=== PATIENT | female | born 1950 | race Caucasian/White ===

== ENCOUNTER → 2016-09-21 | Outpatient (CLI) | payer MEDICARE, OTHER ==
[~2016-09-21] MED LIST: DENOSUMAB 60 MG/ML 1 ML SYRINGE SQ ONE; PATIENTS OWN MED ONE
[2016-09-21 14:24] VITALS: BP 170/80; PULSE 90; RESP 16; TEMP 98.3
== END ==
LOC: PROCWHC3 14:00
PROVIDERS: ATTEND Internal Medicine
DX: M81.0 Age-related osteoporosis without current pathological fracture (principal)
CPT/HCPCS: 96372

== ENCOUNTER 2016-11-12 11:39 | Emergency (ER) | payer MEDICARE, OTHER ==
[2016-11-12 11:50] VITALS: BP 159/84; PULSE 91; RESP 18; TEMP 98
[2016-11-12] MEDS ORDERED: HYDROmorphone 1 MG/ML 1 ML SYRINGE IVP STA (12:48)
[2016-11-12] MEDS ORDERED: ONDANSETRON 4 MG/2 ML VIAL IM STA (12:49)
--- NOTE | 2016-11-12 12:55 | ED ---
Extremity Problem HPI - General Chief complaint: Extremity Problem,Nontraumatic Stated complaint: poss Fx rt hip Source: patient Mode of arrival: wheelchair Limitations: no limitations - History of Present Illness Initial comments: Patient is a 65-year-old female who presents for evaluation for right hip pain 2 weeks which is progressively worsening. Past medical history as below. Patient is a history of a right hip replacement at [facility]. Her orthopedic surgeon is also out of that hospital. 2 weeks ago she stated that she started getting severe pain to the right hip. She still able to ambulate with her walker and cane. Denies any falls or trauma to the right hip. It is worse in the morning and improves without the day. States that she can't get out of bed like she typically can. She had a poorly a shot 2 months ago and states that she is having a host of side effects from it. She denies fevers, cough, chest pain, nausea, vomiting, diarrhea, pain or burning with urination. - Related Data Home Medications Medication Instructions Recorded Confirmed ALPRAZolam [Xanax] 0.5 mg PO TID PRN 01/06/15 11/12/16 Atorvastatin Calcium [Lipitor] 20 mg PO HS 01/29/16 11/12/16 Ergocalciferol [Vitamin D2 50,000 unit PO SA 01/29/16 11/12/16 (DRISDOL)] Polyethylene Glycol 3350 [Miralax] 17 gm PO DAILY PRN 01/29/16 11/12/16 traZODone HCL [Desyrel] 100 mg PO HS 01/29/16 11/12/16 Morphine Sulfate [Morphine Sulfate 15 mg PO BID 09/21/16 11/12/16 ER] Acetaminophen Tab [Tylenol Tab] 1,000 - 1,500 mg PO Q6HR PRN 11/12/16 11/12/16 Aspirin 81 mg PO DAILY 11/12/16 11/12/16 Ibuprofen [Motrin] 600 mg PO Q8HR PRN 11/12/16 11/12/16 Previous Rx's Medication Instructions Recorded Lisinopril [Zestril] 20 mg PO DAILY #30 tab 02/05/16 oxyCODONE HCL/ACETAMINOPHEN 1 tab PO Q6HR PRN #120 tablet 02/05/16 [Percocet 10-325 mg] Allergies Allergy/AdvReac Type Severity Reaction Status Date / Time Sulfa (Sulfonamide Allergy Unknown Verified 11/12/16 12:36 Antibiotics) hydrocodone AdvReac Nausea Verified 11/12/16 12:40 hydromorphone [From Dilaudid] AdvReac Nausea Verified 11/12/16 12:40 Review of Systems ROS Statement: Those systems with pertinent positive or pertinent negative responses have been documented in the HPI. ROS Other: All systems not noted in ROS Statement are negative. Past Medical History Past Medical History: Eye Disorder, GERD/Reflux, Hyperlipidemia, Hypertension, Osteoarthritis (OA) Additional Past Medical History / Comment(s): DIVERTICULOSIS, HIATAL HERNIA, BOWEL PERFORATION AFTER COLONOSCOPY, KIDNEY STONES,GLAUCOMA ZAHIRA EYES, History of Any Multi-Drug Resistant Organisms: None Reported Past Surgical History: Bowel Resection, Breast Surgery, Hysterectomy, Joint Replacement, Orthopedic Surgery Additional Past Surgical History / Comment(s): colostomy/ later reversal, arthrscopy rt knee, exp lap with lysis of adhesions, uretal stents with removal of stents, colovaginal fistula repair, right hip replaced Past Anesthesia/Blood Transfusion Reactions: Postoperative Nausea & Vomiting ( PONV) Past Psychological History: Anxiety, Depression Smoking Status: Current every day smoker Past Alcohol Use History: None Reported Past Drug Use History: None Reported - Past Family History Brother(s) Family Medical History: Cancer Additional Family Medical History / Comment(s): colon General Exam Limitations: no limitations General appearance: alert, in no apparent distress, other (Resting comfortably in the stretcher. Sitting upright reading a magazine.) Head exam: Present: atraumatic, normocephalic, normal inspection Eye exam: Present: normal appearance, PERRL, EOMI. Absent: scleral icterus, conjunctival injection, periorbital swelling ENT exam: Present: normal exam, mucous membranes moist Neck exam: Present: normal inspection. Absent: tenderness, meningismus, lymphadenopathy Respiratory exam: Present: normal lung sounds bilaterally. Absent: respiratory distress, wheezes, rales, rhonchi, stridor Cardiovascular Exam: Present: regular rate, normal rhythm, normal heart sounds. Absent: systolic murmur, diastolic murmur, rubs, gallop, clicks GI/Abdominal exam: Present: soft, normal bowel sounds. Absent: distended, tenderness, guarding, rebound, rigid Extremities exam: Present: normal inspection, full ROM, tenderness (Pain with palpation of the right lateral hip. No pain with femur role. Mild tenderness with palpation of the right knee.), normal capillary refill. Absent: pedal edema, joint swelling, calf tenderness Back exam: Present: normal inspection Neurological exam: Present: alert, oriented X3, CN II-XII intact Psychiatric exam: Present: normal affect, normal mood Skin exam: Present: warm, dry, intact, normal color. Absent: rash Course Vital Signs 11/12/16 11:44 Temperature 98 F Pulse Rate 91 Respiratory 18 Rate Blood Pressure 159/84 O2 Sat by Pulse 97 Oximetry Medical Decision Making - Medical Decision Making - Patient presents for evaluation for worsening right hip pain over the last 2 weeks. No trauma or fall. She has a constellation of other symptoms. Believes that is related to her prolia shot. Will order basic labs with a troponin, EKG, troponin, 0.5 mg IV Dilaudid as she is not opiate shade. 1352: Reviewed EKG. Normal sinus rhythm at 73. OR 154. QRS 82. QTc 429. No ST changes. Similar to EKG on 01/27/2016. Awaiting laboratory studies and imaging. 1500: Reviewed the patient's laboratory studies and imaging. No acute abnormalities with her blood work. Plain films of her right hip and right knee revealed no acute fracture dislocation. Patient very upset. Was able to scoot out of bed and landed on both feet and walked to her bag and started to get dressed. I will provide an orthopedic surgeon to follow-up with. I encouraged her to follow-up with her own orthopedic surgeon. The patient stated that she will just follow-up with her own primary care physician. Discussed signs and symptoms on when to return to the emergency department for further evaluation. - Lab Data Result diagrams: 11/12/16 13:30 11/12/16 13:30 Lab Results 11/12/16 11/12/16 11/12/16 Range/Units 13:30 13:30 13:30 WBC 6.0 (3.8-10.6) k/uL RBC 5.03 (3.80-5.40) m/uL Hgb 15.7 (11.4-16.0) gm/dL Hct 48.3 H (34.0-46.0) % MCV 96.1 (80.0-100.0) fL MCH 31.2 (25.0-35.0) pg MCHC 32.4 (31.0-37.0) g/dL RDW 13.8 (11.5-15.5) % Plt Count 214 (150-450) k/uL Neutrophils % 59 % Lymphocytes % 30 % Monocytes % 7 % Eosinophils % 2 % Basophils % 0 % Neutrophils # 3.5 (1.3-7.7) k/uL Lymphocytes # 1.8 (1.0-4.8) k/uL Monocytes # 0.4 (0-1.0) k/uL Eosinophils # 0.1 (0-0.7) k/uL Basophils # 0.0 (0-0.2) k/uL Sodium 144 (137-145) mmol/L Potassium 4.4 (3.5-5.1) mmol/L Chloride 112 H (98-107) mmol/L Carbon Dioxide 22 (22-30) mmol/L Anion Gap 10 mmol/L BUN 14 (7-17) mg/dL Creatinine 0.50 L (0.52-1.04) mg/dL Est GFR (MDRD) Af Amer >60 (>60 ml/min/1.73 sqM) Est GFR (MDRD) Non-Af >60 (>60 ml/min/1.73 sqM) Glucose 99 (74-99) mg/dL Calcium 8.8 (8.4-10.2) mg/dL Magnesium 2.2 (1.6-2.3) mg/dL Troponin I <0.012 (0.000-0.034) ng/mL Urine Color Urine Appearance (Clear) Urine pH (5.0-8.0) Ur Specific [place] (1.001-1.035) Urine Protein (Negative) Urine Glucose (UA) (Negative) Urine Ketones (Negative) Urine Blood (Negative) Urine Nitrite (Negative) Urine Bilirubin (Negative) Urine Urobilinogen (<2.0) mg/dL Ur Leukocyte Esterase (Negative) 11/12/16 Range/Units 13:30 WBC (3.8-10.6) k/uL RBC (3.80-5.40) m/uL Hgb (11.4-16.0) gm/dL Hct (34.0-46.0) % MCV (80.0-100.0) fL MCH (25.0-35.0) pg MCHC (31.0-37.0) g/dL RDW (11.5-15.5) % Plt Count (150-450) k/uL Neutrophils % % Lymphocytes % % Monocytes % % Eosinophils % % Basophils % % Neutrophils # (1.3-7.7) k/uL Lymphocytes # (1.0-4.8) k/uL Monocytes # (0-1.0) k/uL Eosinophils # (0-0.7) k/uL Basophils # (0-0.2) k/uL Sodium (137-145) mmol/L Potassium (3.5-5.1) mmol/L Chloride (98-107) mmol/L Carbon Dioxide (22-30) mmol/L Anion Gap mmol/L BUN (7-17) mg/dL Creatinine (0.52-1.04) mg/dL Est GFR (MDRD) Af Amer (>60 ml/min/1.73 sqM) Est GFR (MDRD) Non-Af (>60 ml/min/1.73 sqM) Glucose (74-99) mg/dL Calcium (8.4-10.2) mg/dL Magnesium (1.6-2.3) mg/dL Troponin I (0.000-0.034) ng/mL Urine Color Light Yellow Urine Appearance Clear (Clear) Urine pH 5.0 (5.0-8.0) Ur Specific [place] 1.010 (1.001-1.035) Urine Protein Negative (Negative) Urine Glucose (UA) Negative (Negative) Urine Ketones Negative (Negative) Urine Blood Negative (Negative) Urine Nitrite Negative (Negative) Urine Bilirubin Negative (Negative) Urine Urobilinogen <2.0 (<2.0) mg/dL Ur Leukocyte Esterase Negative (Negative) Disposition Clinical Impression: Hip pain Disposition: HOME SELF-CARE Condition: Fair Instructions: Hip Pain (ED) Referrals: Pravin Edmonds MD [Primary Care Provider] - 1-2 days Simba Means MD [Medical Doctor] - 1-2 days
[2016-11-12] MEDS ORDERED: ONDANSETRON 4 MG/2 ML VIAL IVP STA (13:33)
[2016-11-12 13:47] LABS: Basophils % (A) 0 %; CH 31.8; CHCM 33.2; Eosinophils # (A) 0.1 k/uL (0-0.7); Eosinophils % (A) 2 %; HCT 48.3 % (34.0-46.0); HGB 15.7 gm/dL (11.4-16.0); Luc # (Auto) 0.06; Luc % (Auto) 1; Lymphocytes # (A) 1.8 k/uL (1.0-4.8); Lymphocytes % (A) 30 %; MCH 31.2 pg (25.0-35.0); MCHC 32.4 g/dL (31.0-37.0); MCV 96.1 fL (80.0-100.0); Mean Platelet Volume 6.9; Monocytes # (A) 0.4 k/uL (0-1.0); Monocytes % (A) 7 %; Neutrophils # (A) 3.5 k/uL (1.3-7.7); Neutrophils % (A) 59 %; RBC 5.03 m/uL (3.80-5.40); RDW 13.8 % (11.5-15.5); WBC (Perox) 6.02
[2016-11-12 13:48] LABS: Appearance,Urine Clear (Clear); Bilirubin,Urine Negative (Negative); Glucose,Urine (UA) Negative (Negative); Ketones,Urine Negative (Negative); Leukocyte Esterase,Urine Negative (Negative); Nitrite,Urine Negative (Negative); Protein,Urine Negative (Negative); UA Billing (MACRO vs. MICRO) CHEM; Urobilinogen,Urine <2.0 mg/dL (<2.0)
[2016-11-12 13:56] LABS: Anion Gap 10 mmol/L; Blood Urea Nitrogen 14 mg/dL (7-17); Calcium 8.8 mg/dL (8.4-10.2); Carbon Dioxide 22 mmol/L (22-30); Chloride 112 mmol/L (98-107); Glucose 99 mg/dL (74-99); Magnesium 2.2 mg/dL (1.6-2.3); Non-African American GFR(MDRD) >60 (>60 ml/min/1.73 sqM); Potassium 4.4 mmol/L (3.5-5.1); Sodium 144 mmol/L (137-145)
--- NOTE | 2016-11-12 14:01 | XR ---
EXAMINATION TYPE: XR knee complete RT DATE OF EXAM: 11/12/2016 CLINICAL HISTORY: Right knee pain for 2 weeks. TECHNIQUE: Three views of the right knee are obtained. COMPARISON: Right knee x-ray June 08, 2013.. FINDINGS: There is no acute fracture/dislocation evident in right knee. [place] osseous structures ar e demineralized. Metallic hardware from total right knee arthroplasty is felt satisfactory in positio n. No suspicious surrounding lucency is seen. The overlying soft tissue appears unremarkable. IMPRESSION: There is no acute fracture or dislocation in the right knee.
--- NOTE | 2016-11-12 14:02 | XR ---
EXAMINATION TYPE: XR Hip Complete RT DATE OF EXAM: 11/12/2016 CLINICAL HISTORY: Right hip pain for 2 weeks. TECHNIQUE: AP and frogleg views of the right hip are obtained. COMPARISON: None. FINDINGS: [place] osseous structures are demineralized. There is no acute fracture/dislocation eviden t in the right hip. Metallic hardware from right hip arthroplasty is felt satisfactory in position. No suspicious surrounding lucency is seen. The overlying soft tissue appears unremarkable. IMPRESSION: There is no acute fracture or dislocation in the right hip.
== END 2016-11-12 15:11 | disposition home or self-care (01) ==
LOC: EC 11:39
DX: M25.551 Pain in right hip (principal); M25.561 Pain in right knee; E78.5 Hyperlipidemia, unspecified; I10 Essential (primary) hypertension; F32.9 Major depressive disorder, single episode, unspecified; F41.9 Anxiety disorder, unspecified; M19.90 Unspecified osteoarthritis, unspecified site; F17.200 Nicotine dependence, unspecified, uncomplicated; Z79.82 Long term (current) use of aspirin; Z79.891 Long term (current) use of opiate analgesic; Z79.899 Other long term (current) drug therapy; Z88.2 Allergy status to sulfonamides; Z88.5 Allergy status to narcotic agent; Z96.641 Presence of right artificial hip joint; Z96.651 Presence of right artificial knee joint
CPT/HCPCS: 36415; 93005; 80048; 83735; 84484; 85025; 81003; 73502; 73562; 99284; 96374; 96375; J2405; J1170

== ENCOUNTER 2017-04-02 10:20 | Emergency (ER) | payer MEDICARE, OTHER ==
[2017-04-02 10:34] VITALS: BP 141/77; PULSE 97; RESP 18; TEMP 97.5
[2017-04-02] MEDS ORDERED: diphenhydrAMINE 50 MG/ML 1 ML VIAL IM STA (10:46)
[2017-04-02] MEDS ORDERED: MORPHINE SULFATE 10 MG/ML SYRINGE IM STA (10:46)
--- NOTE | 2017-04-02 10:47 | ED ---
General Adult HPI - General Chief complaint: Allergic Reaction Stated complaint: jaw pain and lesions following shot Time Seen by Provider: 04/02/17 10:30 Source: patient, RN notes reviewed Mode of arrival: wheelchair Limitations: no limitations - History of Present Illness Initial comments: This is a 66-year-old female received a shot of Prolia in the office about a week ago. Patient states she's had a rash which is extremely itchy on her scalp elbow is lower back buttock and inner thighs. Patient states that is raised hives everywhere. Patient states she also has some right-sided jaw pain which is exactly what happened last time she got worried shots. Patient states the jaw pain only hurts if she moves her jaw she sits still there is no pain whatsoever. 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 Patient states she is ALLERGIC to steroids so she cannot take any steroids. Patient states she has not taken any Benadryl for itching at. Patient denies any difficulty breathing patient denies any chest pain palpitations. Patient denies any shortness of breath. Patient denies any recent fever chills or cough per patient denies abdominal pain patient denies nausea vomiting diarrhea. Patient denies headache. - Related Data Home Medications Medication Instructions Recorded Confirmed ALPRAZolam [Xanax] 0.5 mg PO TID PRN 01/06/15 03/24/17 Atorvastatin Calcium [Lipitor] 20 mg PO HS 01/29/16 03/24/17 Ergocalciferol [Vitamin D2 50,000 unit PO SA 01/29/16 03/24/17 (DRISDOL)] Polyethylene Glycol 3350 [Miralax] 17 gm PO DAILY PRN 01/29/16 03/24/17 traZODone HCL [Desyrel] 100 mg PO HS 01/29/16 03/24/17 Morphine Sulfate [Morphine Sulfate 15 mg PO BID 09/21/16 03/24/17 ER] Aspirin 81 mg PO DAILY 11/12/16 03/24/17 Previous Rx's Medication Instructions Recorded Lisinopril [Zestril] 20 mg PO DAILY #30 tab 02/05/16 oxyCODONE HCL/ACETAMINOPHEN 1 tab PO Q6HR PRN #120 tablet 02/05/16 [Percocet 10-325 mg] Allergies Allergy/AdvReac Type Severity Reaction Status Date / Time Sulfa (Sulfonamide Allergy Unknown Verified 04/02/17 10:34 Antibiotics) hydrocodone AdvReac Nausea Verified 04/02/17 10:34 hydromorphone [From Dilaudid] AdvReac Nausea Verified 04/02/17 10:34 steroids Allergy Swelling Uncoded 04/02/17 10:34 Review of Systems ROS Statement: Those systems with pertinent positive or pertinent negative responses have been documented in the HPI. ROS Other: All systems not noted in ROS Statement are negative. Past Medical History Past Medical History: Eye Disorder, GERD/Reflux, Hyperlipidemia, Hypertension, Osteoarthritis (OA) Additional Past Medical History / Comment(s): DIVERTICULOSIS, HIATAL HERNIA, BOWEL PERFORATION AFTER COLONOSCOPY, KIDNEY STONES,GLAUCOMA ZAHIRA EYES, History of Any Multi-Drug Resistant Organisms: None Reported Past Surgical History: Bowel Resection, Breast Surgery, Hysterectomy, Joint Replacement, Orthopedic Surgery Additional Past Surgical History / Comment(s): colostomy/ later reversal, arthrscopy rt knee, exp lap with lysis of adhesions, uretal stents with removal of stents, colovaginal fistula repair, right hip replaced Past Anesthesia/Blood Transfusion Reactions: Postoperative Nausea & Vomiting ( PONV) Past Psychological History: Anxiety, Depression Smoking Status: Current every day smoker Past Alcohol Use History: None Reported Past Drug Use History: None Reported - Past Family History Brother(s) Family Medical History: Cancer Additional Family Medical History / Comment(s): colon General Exam - General Exam Comments Initial Comments: GENERAL: Patient is well-developed and well-nourished. Patient is nontoxic and well- hydrated and is in mild distress. ENT: Neck is soft and supple. No significant lymphadenopathy is noted. Oropharynx is clear. Moist mucous membranes. Neck has full range of motion without eliciting any pain. EYES: The sclera were anicteric and conjunctiva were pink and moist. Extraocular movements were intact and pupils were equal round and reactive to light. Eyelids were unremarkable. PULMONARY: Unlabored respirations. Good breath sounds bilaterally. No audible rales rhonchi or wheezing was noted. CARDIOVASCULAR: There is a regular rate and rhythm without any murmurs gallops or rubs. ABDOMEN: Soft and nontender with normal bowel sounds. No palpable organomegaly was noted. There is no palpable pulsatile mass. SKIN: Has an erythematous scalp bilateral elbows as well as lower back and buttocks and her hives in all those areas. NEUROLOGIC: Patient is alert and oriented x3. Cranial nerves II through XII are grossly intact. Motor and sensory are also intact. Normal speech, volume and content. Symmetrical smile. MUSCULOSKELETAL: Normal extremities with adequate strength and full range of motion. LYMPHATICS: No significant lymphadenopathy is noted PSYCHIATRIC: Normal psychiatric evaluation. Limitations: no limitations Course Vital Signs 04/02/17 10:30 Temperature 97.5 F L Pulse Rate 97 Respiratory 18 Rate Blood Pressure 141/77 O2 Sat by Pulse 98 Oximetry Disposition Clinical Impression: Allergic reaction Disposition: HOME SELF-CARE Condition: Good Instructions: General Allergic Reaction (ED) Additional Instructions: Patient should take Benadryl every 4 hours when necessary for itching. Patient' s returns as any difficulty breathing or shortness of breath. Referrals: Pravin Edmonds MD [Primary Care Provider] - 1-2 days Time of Disposition: 10:50
== END 2017-04-02 11:02 | disposition home or self-care (01) ==
LOC: EC 10:20
DX: T78.40XA Allergy, unspecified, initial encounter (principal); R68.84 Jaw pain; K21.9 Gastro-esophageal reflux disease without esophagitis; E78.5 Hyperlipidemia, unspecified; I10 Essential (primary) hypertension; M19.90 Unspecified osteoarthritis, unspecified site; F32.9 Major depressive disorder, single episode, unspecified; F41.9 Anxiety disorder, unspecified; F17.200 Nicotine dependence, unspecified, uncomplicated; Z79.82 Long term (current) use of aspirin; Z79.891 Long term (current) use of opiate analgesic; Z79.899 Other long term (current) drug therapy; Z88.2 Allergy status to sulfonamides; Z88.8 Allergy status to other drugs, medicaments and biological substances; Z88.5 Allergy status to narcotic agent
CPT/HCPCS: 99283; 96372 ×2; J1200; J2270

== ENCOUNTER → 2017-06-21 | Outpatient (CLI) | payer MEDICARE, OTHER ==
[2017-06-21 16:14] LABS: Blood Urea Nitrogen 16 mg/dL (7-17)
== END | disposition home or self-care (01) ==
LOC: LABWHC1 15:47
PROVIDERS: ATTEND Orthopaedic Surgery Orthopaedic Surgery of the Spine
DX: Z01.812 Encounter for preprocedural laboratory examination (principal); N28.9 Disorder of kidney and ureter, unspecified; M51.17 Intervertebral disc disorders with radiculopathy, lumbosacral region; M47.27 Other spondylosis with radiculopathy, lumbosacral region
CPT/HCPCS: 36415; 82565; 84520

== ENCOUNTER → 2017-12-12 | Outpatient (CLI) | payer MEDICARE, OTHER ==
--- NOTE | 2017-12-12 16:36 | XR ---
EXAMINATION TYPE: XR chest 2V DATE OF EXAM: 12/12/2017 COMPARISON: 10/17/2014 HISTORY: 66-year-old female with chest pain and shortness of breath TECHNIQUE: PA and lateral views FINDINGS: Heart upper limits of normal in size. Aorta and bony vasculature within normal limits. Mild interstit ial prominence and mild hyperinflation. Hazy density at the cardiac apex suggesting epicardial fat pa d. No consolidation or pleural effusion. IMPRESSION: Chronic changes, possible underlying COPD. No acute process seen.
== END | disposition home or self-care (01) ==
LOC: RADXRMAIN 14:36
PROVIDERS: ATTEND Internal Medicine
DX: R06.02 Shortness of breath (principal); R07.9 Chest pain, unspecified
CPT/HCPCS: 71046

== ENCOUNTER → 2017-12-12 | Outpatient (CLI) | payer MEDICARE, OTHER ==
--- NOTE | 2017-12-13 12:37 | MM ---
Reason for exam: clinical finding. Last mammogram was performed 2 years ago. History: Patient is postmenopausal. Benign excisional biopsy of the right breast, 1973. Took estrogen for 1 year beginning at age 31. Physical Findings: Nurse Summary: 1 x 1cm nodule in the left breast at 9 o'clock (nurse ts). MG 3D Diag Mammo W/Cad ZAHIRA Bilateral CC and MLO view(s) were taken. Prior study comparison: December 09, 2015, bilateral MG diagnostic mammo w CAD ZAHIRA. December 02, 2014, right breast MG work up mamm w CAD RT. There are scattered fibroglandular densities. There is chronic nodularity in the right breast. Posterior circumscribed nodularity 5mm left MLO view. Additional 6mm circumscribed nodule approximately 3 o'clock anterior left breast. Medial left palpable marker. These results were verbally communicated with the patient and result sheet given to the patient on 12/12/17. ASSESSMENT: Incomplete: need additional imaging evaluation, BI-RAD 0 RECOMMENDATION: Ultrasound of the left breast. (1-5 o'clock and palpable)
--- NOTE | 2017-12-13 12:39 | USB ---
Reason for exam: additional evaluation requested from abnormal screening. History: Patient is postmenopausal. Benign excisional biopsy of the right breast, 1973. Took estrogen for 1 year beginning at age 31. US Breast Limited LT Left limited breast ultrasound including focal area of concern, retroareolar and axilla demonstrates a 0.8 x 0.6 x 0.4cm benign lipoma at 9 o'clock, a 0.4 x 0.3 x 0.3cm lesion too small to characterize at 12 o'clock, a 0.4 x 0.4 x 0.6cm mixed lesion at 2 o'clock, likely tiny cyst cluster, probably corresponds to the mammographic finding, 6 month follow up recommended and a node at the axilla. These results were verbally communicated with the patient and result sheet given to the patient on 12/12/17. ASSESSMENT: Probably benign, BI-RAD 3 RECOMMENDATION: Follow-up diagnostic mammogram of the left breast in 6 months.
== END | disposition home or self-care (01) ==
LOC: RADMAMWWP 12:59
PROVIDERS: ATTEND Internal Medicine
DX: R92.8 Other abnormal and inconclusive findings on diagnostic imaging of breast (principal); N64.4 Mastodynia; N63.0 Unspecified lump in unspecified breast
CPT/HCPCS: 77066; 76642; G0279; 77062

== ENCOUNTER 2018-01-18 11:50 | Emergency (ER) | payer MEDICARE, OTHER ==
[2018-01-18 11:55] VITALS: RESP 18
--- NOTE | 2018-01-18 12:52 | ED ---
General Adult HPI - General Chief complaint: Abdominal Pain Stated complaint: Abd Pain Source: patient Mode of arrival: ambulatory Limitations: no limitations - History of Present Illness Initial comments: Dictation was produced using [employer] dictation software. please excuse any grammatical, word or spelling errors. Chief Complaint: 67-year-old female past medical history of chronic gout, arthritis, hypertension presents with right-sided flank pain and bilateral foot pain. History of Present Illness: States that she believes that this is her gout. She 's been having pain for approximately one month to both ankles. She localizes her pain to the bilateral heel areas. Denies any constitutional symptoms. Patient is also concerned about some flank pain. Since her flank pain is on her right side. She's been diagnosed with kidney stones several years ago. Patient is having difficulty walking secondary to the bilateral foot pain. Denies any erythema or warmth to the foot. She does complain of some swelling to bilateral feet. The ROS documented in this emergency department record has been reviewed and confirmed by me. Those systems with pertinent positive or negative responses have been documented in the HPI. All other systems are other negative and/or noncontributory. - Related Data Home Medications Medication Instructions Recorded Confirmed traZODone HCL [Desyrel] 100 mg PO HS 01/29/16 01/18/18 ALPRAZolam [Xanax] 0.25 mg PO BID 01/18/18 01/18/18 Ibuprofen [Motrin] 800 mg PO TID PRN 01/18/18 01/18/18 Ipratropium/Albuterol Sulfate 1 puff INHALATION RT-QID PRN 01/18/18 01/18/18 [Combivent Respimat Inhaler] traMADol HCL [Ultram] 50 mg PO TID PRN 01/18/18 01/18/18 Previous Rx's Medication Instructions Recorded Lisinopril [Zestril] 20 mg PO DAILY #30 tab 02/05/16 Allergies Allergy/AdvReac Type Severity Reaction Status Date / Time Sulfa (Sulfonamide Allergy Unknown Verified 01/18/18 13:50 Antibiotics) hydrocodone AdvReac Nausea Verified 01/18/18 13:50 hydromorphone [From Dilaudid] AdvReac Nausea Verified 01/18/18 13:50 steroids Allergy Swelling Uncoded 01/18/18 11:55 Review of Systems ROS Statement: Those systems with pertinent positive or pertinent negative responses have been documented in the HPI. ROS Other: All systems not noted in ROS Statement are negative. Past Medical History Past Medical History: Eye Disorder, GERD/Reflux, Hyperlipidemia, Hypertension, Osteoarthritis (OA) Additional Past Medical History / Comment(s): DIVERTICULOSIS, HIATAL HERNIA, BOWEL PERFORATION AFTER COLONOSCOPY, KIDNEY STONES,GLAUCOMA ZAHIRA EYES, History of Any Multi-Drug Resistant Organisms: None Reported Past Surgical History: Bowel Resection, Breast Surgery, Hysterectomy, Joint Replacement, Orthopedic Surgery Additional Past Surgical History / Comment(s): colostomy/ later reversal, arthrscopy rt knee, exp lap with lysis of adhesions, uretal stents with removal of stents, colovaginal fistula repair, right hip replaced Past Anesthesia/Blood Transfusion Reactions: Postoperative Nausea & Vomiting ( PONV) Past Psychological History: Anxiety, Depression Smoking Status: Current every day smoker Past Alcohol Use History: None Reported Past Drug Use History: Marijuana - Past Family History Brother(s) Family Medical History: Cancer Additional Family Medical History / Comment(s): colon General Exam - General Exam Comments Initial Comments: PHYSICAL EXAM: General Impression: Alert and oriented x3, not in acute distress HEENT: Normocephalic atraumatic, extra-ocular movements intact, pupils equal and reactive to light bilaterally, mucous membranes moist. Cardiovascular: Heart regular rate and rhythm, S1&S2 audible, no murmurs, rubs or gallops Chest: Lungs clear to auscultation bilaterally, no rhonchi, no wheeze, no rales Abdomen: Bowel sounds present, abdomen soft, non-tender, non-distended, no organomegaly Musculoskeletal: Pulses present and equal in all extremities, 2+ pitting edema bilaterally up to the mid tib area, nonerythematous Motor: Power 5/5 bilaterally, no focal deficits noted Neurological: CN II-XII grossly intact, no focal motor or sensory deficits noted Skin: Intact with no visualized rashes, nonerythematous feet bilaterally. Psych: Normal affect and mood Limitations: no limitations Course Vital Signs 01/18/18 01/18/18 11:53 14:30 Temperature 98.6 F Pulse Rate 103 H 73 Respiratory 18 18 Rate Blood Pressure 202/88 162/73 O2 Sat by Pulse 98 97 Oximetry Medical Decision Making - Medical Decision Making ED course:-year-old female multiple complaints. Chief complaint of right-sided flank pain and bilateral foot pain. Vital signs upon arrival shows heart rate of 13, blood pressure 202/88, pulse vital signs within normal limits. Repeat vital signs are improved. Laboratory evaluation obtained. CBC unremarkable. Coag panel unremarkable. Metabolic panel shows mild hyperglycemia 169. Urinalysis is negative. X-ray of bilateral foot shows no acute processes. Chest x-ray shows no acute processes. CT abdomen and pelvis shows no acute processes. EKGs benign. Clinical presentation is suggestive of arthritic pain to the bilateral ankles and musculoskeletal strain of the right flank area. Patient discharged told to follow-up with primary care physician. EKG interpretation: Ventricular rate 75 and normal sinus rhythm, VT interval 156 , QRS 88, QTc 437. No VT prolongation, no QTC prolongation, no ST or T-wave changes noted. . Overall, this EKG is unremarkable - Lab Data Result diagrams: 01/18/18 12:50 01/18/18 12:50 Lab Results 01/18/18 01/18/18 01/18/18 Range/Units 12:50 12:50 12:50 WBC 6.3 (3.8-10.6) k/uL RBC 4.91 (3.80-5.40) m/uL Hgb 14.4 (11.4-16.0) gm/dL Hct 45.5 (34.0-46.0) % MCV 92.6 (80.0-100.0) fL MCH 29.4 (25.0-35.0) pg MCHC 31.7 (31.0-37.0) g/dL RDW 13.6 (11.5-15.5) % Plt Count 248 (150-450) k/uL Neutrophils % 73 % Lymphocytes % 19 % Monocytes % 6 % Eosinophils % 2 % Basophils % 0 % Neutrophils # 4.5 (1.3-7.7) k/uL Lymphocytes # 1.2 (1.0-4.8) k/uL Monocytes # 0.3 (0-1.0) k/uL Eosinophils # 0.1 (0-0.7) k/uL Basophils # 0.0 (0-0.2) k/uL PT (9.0-12.0) sec INR (<1.2) Sodium 141 (137-145) mmol/L Potassium 4.3 (3.5-5.1) mmol/L Chloride 111 H (98-107) mmol/L Carbon Dioxide 20 L (22-30) mmol/L Anion Gap 10 mmol/L BUN 14 (7-17) mg/dL Creatinine 0.55 (0.52-1.04) mg/dL Est GFR (CKD-EPI)AfAm >90 (>60 ml/min/1.73 sqM) Est GFR (CKD-EPI)NonAf >90 (>60 ml/min/1.73 sqM) Glucose 169 H (74-99) mg/dL Calcium 9.0 (8.4-10.2) mg/dL Total Bilirubin 0.4 (0.2-1.3) mg/dL AST 15 (14-36) U/L ALT 20 (9-52) U/L Alkaline Phosphatase 90 (38-126) U/L Troponin I (0.000-0.034) ng/mL NT-Pro-B Natriuret Pep pg/mL Total Protein 6.3 (6.3-8.2) g/dL Albumin 3.8 (3.5-5.0) g/dL Lipase 14 L (23-300) U/L Urine Color Light Yellow Urine Appearance Clear (Clear) Urine pH 5.5 (5.0-8.0) Ur Specific [place] 1.009 (1.001-1.035) Urine Protein Negative (Negative) Urine Glucose (UA) Negative (Negative) Urine Ketones Negative (Negative) Urine Blood Trace H (Negative) Urine Nitrite Negative (Negative) Urine Bilirubin Negative (Negative) Urine Urobilinogen <2.0 (<2.0) mg/dL Ur Leukocyte Esterase Negative (Negative) Urine RBC <1 (0-5) /hpf Urine WBC <1 (0-5) /hpf Ur Squamous Epith Cells 1 (0-4) /hpf Urine Bacteria Occasional H (None) /hpf Urine Mucus Rare H (None) /hpf 01/18/18 01/18/18 01/18/18 Range/Units 12:50 12:50 12:50 WBC (3.8-10.6) k/uL RBC (3.80-5.40) m/uL Hgb (11.4-16.0) gm/dL Hct (34.0-46.0) % MCV (80.0-100.0) fL MCH (25.0-35.0) pg MCHC (31.0-37.0) g/dL RDW (11.5-15.5) % Plt Count (150-450) k/uL Neutrophils % % Lymphocytes % % Monocytes % % Eosinophils % % Basophils % % Neutrophils # (1.3-7.7) k/uL Lymphocytes # (1.0-4.8) k/uL Monocytes # (0-1.0) k/uL Eosinophils # (0-0.7) k/uL Basophils # (0-0.2) k/uL PT 9.9 (9.0-12.0) sec INR 1.0 (<1.2) Sodium (137-145) mmol/L Potassium (3.5-5.1) mmol/L Chloride (98-107) mmol/L Carbon Dioxide (22-30) mmol/L Anion Gap mmol/L BUN (7-17) mg/dL Creatinine (0.52-1.04) mg/dL Est GFR (CKD-EPI)AfAm (>60 ml/min/1.73 sqM) Est GFR (CKD-EPI)NonAf (>60 ml/min/1.73 sqM) Glucose (74-99) mg/dL Calcium (8.4-10.2) mg/dL Total Bilirubin (0.2-1.3) mg/dL AST (14-36) U/L ALT (9-52) U/L Alkaline Phosphatase (38-126) U/L Troponin I <0.012 (0.000-0.034) ng/mL NT-Pro-B Natriuret Pep 101 pg/mL Total Protein (6.3-8.2) g/dL Albumin (3.5-5.0) g/dL Lipase (23-300) U/L Urine Color Urine Appearance (Clear) Urine pH (5.0-8.0) Ur Specific [place] (1.001-1.035) Urine Protein (Negative) Urine Glucose (UA) (Negative) Urine Ketones (Negative) Urine Blood (Negative) Urine Nitrite (Negative) Urine Bilirubin (Negative) Urine Urobilinogen (<2.0) mg/dL Ur Leukocyte Esterase (Negative) Urine RBC (0-5) /hpf Urine WBC (0-5) /hpf Ur Squamous Epith Cells (0-4) /hpf Urine Bacteria (None) /hpf Urine Mucus (None) /hpf Disposition Clinical Impression: Bilateral ankle pain Disposition: HOME SELF-CARE Condition: Good Instructions: Arthralgia (ED) Is patient prescribed a controlled substance at d/c from ED?: No Referrals: Anthony Aguilera MD [Primary Care Provider] - 1-2 days Time of Disposition: 15:04
[2018-01-18 13:16] LABS: Basophils % (A) 0 %; Eosinophils # (A) 0.1 k/uL (0-0.7); Eosinophils % (A) 2 %; HCT 45.5 % (34.0-46.0); HGB 14.4 gm/dL (11.4-16.0); Lymphocytes # (A) 1.2 k/uL (1.0-4.8); Lymphocytes % (A) 19 %; MCH 29.4 pg (25.0-35.0); MCHC 31.7 g/dL (31.0-37.0); MCV 92.6 fL (80.0-100.0); Mean Platelet Volume 6.7; Monocytes # (A) 0.3 k/uL (0-1.0); Monocytes % (A) 6 %; Neutrophils # (A) 4.5 k/uL (1.3-7.7); Neutrophils % (A) 73 %; Platelet Count 248 k/uL (150-450); RBC 4.91 m/uL (3.80-5.40); RDW 13.6 % (11.5-15.5); WBC 6.3 k/uL (3.8-10.6)
[2018-01-18 13:18] LABS: Prothrombin Time 9.9 sec (9.0-12.0)
[2018-01-18 13:20] LABS: Appearance,Urine Clear (Clear); Bacteria,Urine Occasional /hpf; Bilirubin,Urine Negative (Negative); Blood,Urine Trace (Negative); Color,Urine Light Yellow; Glucose,Urine (UA) Negative (Negative); Ketones,Urine Negative (Negative); Leukocyte Esterase,Urine Negative (Negative); Mucus,Urine Rare /hpf; Nitrite,Urine Negative (Negative); PH, Urine 5.5 (5.0-8.0); Protein,Urine Negative (Negative); RBC,Urine <1 /hpf (0-5); Specific Gravity,Urine 1.009 (1.001-1.035); Squamous Epithelial Cell,Urine 1 /hpf (0-4); Urobilinogen,Urine <2.0 mg/dL (<2.0); WBC,Urine <1 /hpf (0-5)
[2018-01-18 13:26] LABS: ALT 20 U/L (9-52); AST 15 U/L (14-36); Albumin 3.8 g/dL (3.5-5.0); Alkaline Phosphatase 90 U/L (38-126); Anion Gap 10 mmol/L; Blood Urea Nitrogen 14 mg/dL (7-17); Carbon Dioxide 20 mmol/L (22-30); Chloride 111 mmol/L (98-107); Glucose 169 mg/dL (74-99); Lipase 14 U/L (23-300); Potassium 4.3 mmol/L (3.5-5.1); Sodium 141 mmol/L (137-145); Total Bilirubin 0.4 mg/dL (0.2-1.3); Total Protein 6.3 g/dL (6.3-8.2)
--- NOTE | 2018-01-18 13:42 | XR ---
EXAMINATION TYPE: XR foot complete bilateral DATE OF EXAM: 01/18/2018 CLINICAL HISTORY: pain TECHNIQUE: Frontal, lateral and oblique images of the right foot are obtained. COMPARISON: None. FINDINGS: There is no acute fracture/dislocation evident. Severe narrowing first metatarsal phalange al joint. The overlying soft tissue appears unremarkable. IMPRESSION: There is no acute fracture or dislocation. ICD 10 NO FRACTURE, INITIAL EVALUATION EXAMINATION TYPE: XR foot complete bilateral DATE OF EXAM: 01/18/2018 CLINICAL HISTORY: pain TECHNIQUE: Frontal, lateral and oblique images of the left foot are obtained. COMPARISON: None. FINDINGS: There is no acute fracture/dislocation evident. Severe narrowing first metatarsal phalange al joint. The overlying soft tissue appears unremarkable.
--- NOTE | 2018-01-18 13:46 | XR ---
EXAMINATION TYPE: XR chest 2V DATE OF EXAM: 01/18/2018 COMPARISON: 12/12/2017 HISTORY: Shortness of breath TECHNIQUE: Frontal and lateral views of the chest are obtained. FINDINGS: Scattered senescent parenchymal changes noted. Hyperinflation compatible with COPD. No evidence for infiltrate. No evidence for atelectasis. Heart size is stable. Mediastinal structures are stable and grossly unremarkable. No evidence for hilar prominence. Degenerative changes dorsal spine. IMPRESSION: 1. No evidence for acute pulmonary disease.
[2018-01-18] MEDS ORDERED: MORPHINE SULFATE 2 MG/ML SYRINGE IVP PRN (14:09)
--- NOTE | 2018-01-18 14:32 | CT ---
EXAMINATION TYPE: CT abdomen pelvis wo con DATE OF EXAM: 01/18/2018 COMPARISON: 01/29/2016 HISTORY: Abdominal pain, history of renal stones and gout CT DLP: 1025 mGycm Examination of the solid and hollow viscera is limited given the lack of contrast. FINDINGS: LUNG BASES: No evidence for nodule. No evidence for infiltrate. LIVER/GB: The gallbladder is unremarkable. No space-occupying hepatic lesion. PANCREAS: No pancreatic mass identified. No inflammatory process seen. SPLEEN: No evidence for splenomegaly. No intrasplenic lesions seen. ADRENALS: No adrenal nodules identified. No evidence for thickening. KIDNEYS: No evidence for renal mass. Stable nonobstructing renal calculi noted. No hydronephrosis pre sent. BOWEL: Appendix has a normal appearance. No evidence of bowel obstruction. No inflammatory process. P ostsurgical changes sigmoid colon. Lymph nodes: No evidence for adenopathy greater than 1 cm. Abdominal aorta: Atheromatous changes seen. No evidence for aneurysm. Genital organs: No significant abnormality. Other: Right hip prosthesis. Severe degenerative change lumbar spine. Acute Schmorl node unchanged fr om prior examination inferior endplate of L1. IMPRESSION: 1. No acute process to account for the patient's symptoms.
[2018-01-18 15:21] VITALS: BP 152/68; PULSE 72; TEMP 97.9
== END 2018-01-18 15:15 | disposition home or self-care (01) ==
LOC: EC 11:50
DX: M25.572 Pain in left ankle and joints of left foot (principal); M25.571 Pain in right ankle and joints of right foot; R10.9 Unspecified abdominal pain; F32.9 Major depressive disorder, single episode, unspecified; F41.9 Anxiety disorder, unspecified; F17.200 Nicotine dependence, unspecified, uncomplicated; Z79.899 Other long term (current) drug therapy; Z88.2 Allergy status to sulfonamides; Z88.5 Allergy status to narcotic agent; Z88.8 Allergy status to other drugs, medicaments and biological substances; Z96.641 Presence of right artificial hip joint
CPT/HCPCS: 36415; 93005; 83880; 80053; 83690; 84484; 85025; 85610; 81001; 73630; 71046; 74176; 99284; 96374; J2270

== ENCOUNTER → 2018-07-18 | Outpatient (CLI) | payer MEDICARE, OTHER ==
--- NOTE | 2018-07-18 14:16 | MM ---
Reason for exam: follow-up at short interval from prior study. Last mammogram was performed 7 months ago. History: Patient is postmenopausal. Benign excisional biopsy of the right breast, 1973. Took estrogen for 1 year beginning at age 31. Physical Findings: Nurse did not find any significant physical abnormalities on exam. MG 3D Diag Mammo W/Cad LT CC and MLO view(s) were taken of the left breast. Prior study comparison: December 12, 2017, bilateral MG 3d diag mammo w/cad ZAHIRA. December 09, 2015, bilateral MG diagnostic mammo w CAD ZAHIRA. The breast tissue is heterogeneously dense. This may lower the sensitivity of mammography. There is no discrete abnormality. These results were verbally communicated with the patient and result sheet given to the patient on 07/18/18. ASSESSMENT: Negative, BI-RAD 1 RECOMMENDATION: Routine screening mammogram of both breasts in 6 months. Back on schedule.
--- NOTE | 2018-07-18 14:39 | BD ---
EXAMINATION TYPE: Axial Bone Density DATE OF EXAM: 07/18/2018 Comparison: Prior DEXA bone scan December 09, 2015 CLINICAL HISTORY: Height: 62 inches Weight: 202 FRAX RISK QUESTIONS: Alcohol (3 or more units per day): no Family History (Parent hip fracture): no Glucocorticoids (More than 3mos): no (Ex: prednisone, prednisolone, methylprednisolone, dexamethasone, and hydrocortisone). History of Fracture in Adulthood: yes, wrist Secondary Osteoporosis: 1. Type 1 Diabetes: no 2. Hyperthyroidism: no 3. Menopause before 45: yes 4. Malnutrition: no 5. Chronic liver disease: no Rheumatoid Arthritis: no Current Tobacco Use: yes RISK FACTORS HISTORY OF: Hip Fracture : no Hip surgery: yes, right May 2015 Spine Fracture: no History of Wrist Fracture: yes When: 53 Surgery to Wrist (right): yes When: Age 53 Family History of Osteoporosis: yes Active: somewhat limited due to hip replacement Diet low in dairy products/other sources of calcium: a serving about every other day Postmenopausal woman: yes Take estrogen and/or progesterone medications: not now How long: about 1 year Lost more than 2 inches in height since high school: yes Frequent falls: no Poor Health: somewhat Hyperparathyroidism: no Adrenal Insufficiency: no MEDICATIONS: Prednisone or other steroids: no Thyroid Medications: no Osteoporosis Medications: not now Which medication: Prolia How Lon treatments, about 2 years ago or less Additional Medications: blood pressure meds (takes as needed) Additional History: EXAM MEASUREMENTS: Bone mineral densitometry was performed using the Fluxome System. Bone mineral density as measured about the Lumbar spine is: ----- L1-L4(G/cm2): 0.799 T Score Values are as follows: ----- L2: -3.2 ----- L3: -3.5 ----- L4: -3.7 ----- L1-L4: -3.2 Bone mineral density has: Decreased -4.8% since study of: 12/09/2015 Bone mineral density about the L hip (g/cm2): 0.807 T Score values are as follows: -----L Neck: -1.7 -----L Total: -2.6 Bone mineral density has: Decreased -2.6 % since study of: 12/09/2015 IMPRESSION: Osteoporosis (T Score less than -2.5) redemonstrated in the low back. Bone density diminished from pr ior. There remains increased fracture risk and therapy is usually indicated based on age. Re-Screen 1-2 years. NOTE: T-SCORE=SD OF THE YOUNG ADULT MEAN.
== END | disposition home or self-care (01) ==
LOC: RADBDWWP 12:42
PROVIDERS: ATTEND Internal Medicine
DX: R92.8 Other abnormal and inconclusive findings on diagnostic imaging of breast (principal); M81.0 Age-related osteoporosis without current pathological fracture
CPT/HCPCS: 77080; 77065; G0279; 77061

== ENCOUNTER 2019-01-05 06:28 | Day surgery (SDC) | payer MEDICARE, OTHER ==
[2018-12-29 16:04] VITALS: BMI 35.4
[~2019-01-05 06:28] MED LIST changes: +ALPRAZolam 0.25 MG TAB PO PRN; +ALPRAZolam 0.5 MG TAB PO PRN; +ASPIRIN 325 MG TAB PO STA; +ATORVASTATIN 80 MG TAB PO STA; -DENOSUMAB 60 MG/ML 1 ML SYRINGE SQ ONE; +NITROGLYCERIN SL TABS 0.4 MG TAB SUBLINGUAL PRN; -PATIENTS OWN MED ONE; +SODIUM CHLORIDE 0.9% 1,000 ML in EMPTY BAG 1 BAG IV ONE
[2019-01-05] MEDS ORDERED: HEPARIN SODIUM 1,000 UN/ML (10ML VL) ONE (07:22)
[2019-01-05] MEDS ORDERED: VERAPAMIL 2.5 MG/ML 2 ML AMP ONE (07:23)
[2019-01-05] MEDS ORDERED: LIDOCAINE 1% INJ 10MG/ML (20 ML MDV) ONE (07:23)
[2019-01-05] MEDS ORDERED: fentaNYL (PF) 50 MCG/ML 2 ML AMP ONE (07:23)
[2019-01-05 07:34] VITALS: PULSE 93; RESP 20; TEMP 98
[2019-01-05] MEDS ORDERED: fentaNYL (PF) 50 MCG/ML 2 ML AMP IVP ONE (07:45)
[2019-01-05] MEDS ORDERED: LIDOCAINE 1% INJ 10MG/ML (20 ML MDV) SQ ONE (07:47)
[2019-01-05] MEDS ORDERED: VERAPAMIL SYRINGE (5 MG/10 ML) INTRAARTER ONE (07:48)
[2019-01-05] MEDS ORDERED: MIDAZOLAM (PF) 2 MG/2 ML VIAL IVP ONE (07:50)
[2019-01-05] MEDS ORDERED: IOPAMIDOL-370 100ML BTL INJ ONE (08:02)
[2019-01-05] MEDS ORDERED: RX INFO: IV CONTRAST WAS GIVEN 1 EACH MISC MISCELLANE PRN (08:09)
[2019-01-05] MEDS ORDERED: HYDROcodone/APAP 10-325MG 1 EACH TAB PO PRN (08:10)
[2019-01-05] MEDS ORDERED: SODIUM CHLORIDE 0.9% 1,000 ML IV SCH (08:15)
[2019-01-05] MEDS ORDERED: HYDROCHLOROTHIAZIDE PO SCH (09:00)
[2019-01-05] MEDS ORDERED: ATORVASTATIN 40 MG TAB PO SCH (09:00)
[2019-01-05] MEDS ORDERED: amLODIPine 5 MG TAB PO SCH (09:00)
[2019-01-05] MEDS ORDERED: ALPRAZolam 0.25 MG TAB PO SCH (09:00)
[2019-01-05] MEDS ORDERED: ASPIRIN 325 MG TAB PO SCH (09:00)
[2019-01-05] MEDS ORDERED: VALSARTAN PO SCH (09:00)
--- NOTE | 2019-01-05 09:17 | CC ---
CARDIAC CATHETERIZATION REPORT Mrs. Pimentel is a 68-year-old female with known history of chronic tobacco use, hypertension, hyperlipidemia, who has been complaining of episode of chest discomfort and jaw discomfort at time exertion in pattern, increasing frequency and intensity. About 8 months ago, she underwent a myocardial perfusion imaging that revealed no evidence of inducible ischemia. But because of the increased frequency of her symptoms and the risk factors, recommendation was made regarding cardiac catheterization. The procedure as well as the risks and the complications were discussed with the patient who is in full understanding and agreement. PROCEDURE: Patient was brought to the laborer driver in a fasting semi-sedated state after receiving fentanyl and Benadryl and achieving moderate conscious sedated state. Using Xylocaine anesthesia in the Seldinger technique, a 6-[place] sheath was introduced in the right radial artery. Selective right and left coronary angiography was performed using 5- [place] 3.5 bend right and left Lidia catheter. Multiple views of the coronary artery including hemiaxial views were obtained. Following that a 5-[place] tight pigtail catheter was introduced in the left ventricle and a 30-degree DEJESUS view of the left ventricle was obtained. Following that, catheter and sheath were removed. Hemostasis was obtained with deployment of a TR band. There was no immediate complication. Patient is returned to her room in stable condition. Of note, the patient received 5000 units of intravenous heparin as well as intra-arterial verapamil. FINDINGS: FLUOROSCOPY: There was calcification involving the LAD as well as the right coronary artery. LEFT MAIN: This is a large-sized vessel bifurcating in left circumflex and left anterior descending artery. Left main coronary artery has no evidence of high-grade stenosis . LEFT ANTERIOR DESCENDING ARTERY: This is a large-sized vessel reaching toward the apex, tapers down distal third. The left anterior descending artery gives rise to 2 diagonal branches. The second one is small in caliber and has diffuse intimal disease with area of stenosis up to 70% to 80%. The rest of the vessel has mild intimal disease without any evidence of high-grade stenosis. LEFT CIRCUMFLEX: This is a nondominant vessel, large in caliber giving rise to 3 obtuse marginal branches. The left circumflex as well as branches have no evidence of obstructive coronary artery disease. RIGHT CORONARY ARTERY: This is a dominant vessel moderate in caliber giving rise to a right PDA. The right coronary artery in mid segment has a 30% plaque. The rest of the vessel has no high-grade stenosis. LEFT VENTRICULOGRAM: Left ventriculogram is performed in 30-degree DEJESUS view and revealed a normal left ventricular size and systolic function. Ejection fraction is 60%. There was no significant mitral regurgitation. HEMODYNAMICS: There was no gradient across the aortic valve. The left ventricular end-diastolic pressure is 16 mmHg. CONCLUSION: 1. Calcified coronary artery. 2. Moderate disease in a small diagonal branch. 3. Mild disease in the right coronary artery. 4. Normal left ventricular size and systolic function. RECOMMENDATION: In view of finding anatomy, I recommend continue medical therapy with aggressive coronary risk modifications that have been initiated including smoking cessation. The importance of that was discussed with the patient who is in full understanding and agreement. Duration of procedure is 21 minutes. MMODL / IJN: [id number] /
[2019-01-05 13:02] VITALS: BP 145/69
[2019-01-05] MEDS ORDERED: traZODone HCL 100 MG TAB PO SCH (21:00)
== END 2019-01-05 12:00 | disposition home or self-care (01) ==
LOC: CATHCVL 06:28
PROVIDERS: ATTEND Internal Medicine Interventional Cardiology
DX: I25.110 Atherosclerotic heart disease of native coronary artery with unstable angina pectoris (principal); I10 Essential (primary) hypertension; F17.210 Nicotine dependence, cigarettes, uncomplicated; E78.2 Mixed hyperlipidemia; R09.89 Other specified symptoms and signs involving the circulatory and respiratory systems; K21.9 Gastro-esophageal reflux disease without esophagitis; E66.9 Obesity, unspecified; Z79.82 Long term (current) use of aspirin; Z79.899 Other long term (current) drug therapy; Z88.2 Allergy status to sulfonamides; Z88.5 Allergy status to narcotic agent; Z88.6 Allergy status to analgesic agent; Z68.35 Body mass index [BMI] 35.0-35.9, adult
CPT/HCPCS: 93458; C1769; J2001; J3010; J1644; Q9967; J2250

== ENCOUNTER → 2019-03-23 | Outpatient (CLI) | payer MEDICARE, OTHER ==
--- NOTE | 2019-03-23 13:51 | XR ---
EXAMINATION TYPE: XR chest 2V DATE OF EXAM: 03/23/2019 COMPARISON: 01/18/2018 HISTORY: Shortness of breath and chest pain TECHNIQUE: Frontal and lateral views of the chest are obtained. FINDINGS: There is no focal air space opacity, pleural effusion, or pneumothorax seen. Chronic opaci ty along the ventricular apex likely relates to prominent epicardial fat pad. The cardiac silhouette size is within normal limits. The osseous structures are intact. Mild diffuse osseous demineralizat ion is seen. Increased retrosternal airspace and flattening of the diaphragms with pulmonary hyperinf lation indicative of underlying COPD. Mild multilevel degenerative changes of the spine. IMPRESSION: No acute cardiopulmonary process. Findings of underlying COPD.
== END | disposition home or self-care (01) ==
LOC: RADXRMAIN 13:26
PROVIDERS: ATTEND Internal Medicine
DX: R06.02 Shortness of breath (principal)
CPT/HCPCS: 71046

== ENCOUNTER → 2020-10-03 | Outpatient (CLI) | payer MEDICARE, OTHER ==
--- NOTE | 2020-10-08 12:23 | MM ---
Reason for exam: screening (asymptomatic). Last mammogram was performed 2 years and 3 months ago. History: Patient is postmenopausal. Benign excisional biopsy of the right breast, 1974. Took estrogen for 1 year beginning at age 31. Physical Findings: A clinical breast exam by your physician is recommended on an annual basis and results should be correlated with mammographic findings. MG Screening Mammo w CAD Bilateral CC and MLO view(s) were taken. Prior study comparison: July 18, 2018, left breast MG 3d diag mammo w/cad LT. December 12, 2017, bilateral MG 3d diag mammo w/cad ZAHIRA. There are scattered fibroglandular densities. Right breast nodule increased in size. ASSESSMENT: Incomplete: need additional imaging evaluation, BI-RAD 0 RECOMMENDATION: Ultrasound of the right breast. [facility] will attempt to contact patient to return for ultrasound.
== END | disposition home or self-care (01) ==
LOC: LABWHC1 13:15
PROVIDERS: ATTEND Internal Medicine
DX: Z12.31 Encounter for screening mammogram for malignant neoplasm of breast (principal)
CPT/HCPCS: 77067

== ENCOUNTER → 2020-11-04 | Outpatient (CLI) | payer MEDICARE, OTHER ==
--- NOTE | 2020-11-04 14:12 | USB ---
EXAMINATION TYPE: US breast workup limited RT DATE OF EXAM: 11/04/2020 COMPARISON: 10/03/2020 CLINICAL HISTORY: R92.8 ABN MAMMO. Targeted right breast ultrasound was performed from 12-6 o'clock. There are innumerable tiny simple appearing and clustered cysts. A 0.9 x 0.5 x 0.6 cm simple cyst at 2o'clock corresponds well in size, location and morphology to the asymmetry on mammography. No sonographic evidence for malignancy in the right axilla. IMPRESSION: No sonographic evidence for malignancy. BI-RADS 2, benign. Recommendation: Return to annual screening mammogram, due in September 2021.
== END | disposition home or self-care (01) ==
LOC: RADUSWWP 13:02
PROVIDERS: ATTEND Internal Medicine
DX: N60.01 Solitary cyst of right breast (principal)

== ENCOUNTER → 2021-04-03 | Outpatient (CLI) | payer MEDICARE, OTHER ==
[2021-04-03 10:37] LABS: HCT 43.2 % (34.0-46.0); HGB 14.1 gm/dL (11.4-16.0); MCH 32.4 pg (25.0-35.0); MCHC 32.7 g/dL (31.0-37.0); Mean Platelet Volume 7.3; Platelet Count 266 k/uL (150-450); RBC 4.37 m/uL (3.80-5.40); WBC 10.3 k/uL (3.8-10.6)
[2021-04-03 10:48] LABS: Albumin 3.8 g/dL (3.5-5.0); Calcium 9.4 mg/dL (8.4-10.2); Potassium 4.5 mmol/L (3.5-5.1); Total Bilirubin 0.2 mg/dL (0.2-1.3); Total Protein 6.4 g/dL (6.3-8.2)
[2021-04-03 10:58] LABS: INR 0.8 (<1.2); Partial Thromboplastin Time 22.2 sec (22.0-30.0); Prothrombin Time 9.3 sec (9.0-12.0)
[2021-04-03 11:03] LABS: Appearance,Urine Cloudy (Clear); Bilirubin,Urine Negative (Negative); Blood,Urine Trace (Negative); Color,Urine Yellow; Glucose,Urine (UA) Negative (Negative); Hyaline Casts,Urine 172 /lpf (0-2); Ketones,Urine Negative (Negative); Leukocyte Esterase,Urine Moderate (Negative); Mucus,Urine Few /hpf; Nitrite,Urine Negative (Negative); PH, Urine 5.5 (5.0-8.0); Protein,Urine 1+ (Negative); RBC,Urine 1 /hpf (0-5); Specific Gravity,Urine 1.029 (1.001-1.035); Squamous Epithelial Cell,Urine 15 /hpf (0-4); WBC,Urine 13 /hpf (0-5)
== END | disposition home or self-care (01) ==
LOC: LABPAT 09:23
PROVIDERS: ATTEND Orthopaedic Surgery
DX: Z01.818 Encounter for other preprocedural examination (principal)
CPT/HCPCS: 80053; 81001; 85027; 85610; 85730; 87070; 93005

== ENCOUNTER → 2022-01-04 | Outpatient (CLI) | payer MEDICARE, OTHER ==
[2022-01-04 13:52] LABS: INR 0.8 (<1.2); Prothrombin Time 9.5 sec (9.0-12.0)
[2022-01-04 13:58] LABS: Partial Thromboplastin Time 22.9 sec (22.0-30.0)
[2022-01-04 18:46] LABS: HCT 44.3 % (37.2-46.3); HGB 13.8 g/dL (12.0-15.0); MCH 30.2 pg (27.0-32.0); MCHC 31.2 g/dL (32.0-37.0); MCV 96.9 fL (80.0-97.0); NRBC Per 100 WBC 0 /100 WBCS (0.0-0.0); Platelet Count 230 X 10*3/uL (140-440); RBC 4.57 X 10*6/uL (4.10-5.20); RDW 13.6 % (11.5-14.5); WBC 5.95 X 10*3/uL (4.50-10.00)
[2022-01-04 18:47] LABS: ALT 10 U/L (8-44); AST 16 U/L (13-35); African American GFR (CKD) 87.2 (60.0-200.0); Albumin 4.1 g/dL (3.8-4.9); Albumin/Globulin Ratio 1.78 (1.60-3.17); Alkaline Phosphatase 73 U/L (41-126); BUN/Creat Ratio 16.38 Ratio (12.00-20.00); Blood Urea Nitrogen 13.1 mg/dL (9.0-27.0); Calcium 9.2 mg/dL (8.7-10.3); Carbon Dioxide 24.9 mmol/L (20.0-27.5); Chloride 107 mmol/L (96-109); Globulin 2.3 g/dL (1.6-3.3); Glucose 189 mg/dL (70-110); Non-African American GFR(CKD) 75.2 (60.0-200.0); Potassium 4.6 mmol/L (3.5-5.5); Sodium 142 mmol/L (135-145); Total Bilirubin <0.15 mg/dL (0.30-1.20); Total Protein 6.4 g/dL (6.2-8.2)
[2022-01-04 21:23] LABS: Appearance,Urine Cloudy (Clear); Bacteria,Urine 3+ /HPF (None Seen); Bilirubin,Urine Small (Negative); Blood,Urine Negative (Negative); Calcium Oxalate Crystals,Urine Present /LPF (None Seen); Color,Urine Dark Yellow (Yellow); Ketones,Urine Trace mg/dL (Negative); Nitrite,Urine Negative (Negative); Specific Gravity,Urine >1.035 (1.001-1.030)
== END | disposition home or self-care (01) ==
LOC: LABPAT 12:56
PROVIDERS: ATTEND Orthopaedic Surgery
DX: Z01.812 Encounter for preprocedural laboratory examination (principal); M17.12 Unilateral primary osteoarthritis, left knee
CPT/HCPCS: 80053; 81001; 85027; 85610; 85730; 87070; 93005

== ENCOUNTER 2022-02-01 07:29 | Observation (INO) | payer MEDICARE, OTHER ==
[2022-01-28 12:41] VITALS: BMI 37.2
[~2022-02-01 07:29] MED LIST changes: +ACETAMINOPHEN TAB 500 MG TAB PO PRN; -ALPRAZolam 0.25 MG TAB PO PRN; -ALPRAZolam 0.5 MG TAB PO PRN; -ASPIRIN 325 MG TAB PO STA; -ATORVASTATIN 80 MG TAB PO STA; +DEXAMETHASONE SOD PHOSPHATE 4 MG/ML 1 ML VIAL IV ONE; +GABAPENTIN 300 MG CAP PO PRN; +MELOXICAM 7.5 MG TAB PO PRN; -NITROGLYCERIN SL TABS 0.4 MG TAB SUBLINGUAL PRN; +ONDANSETRON 4 MG/2 ML VIAL IVP ONE; -SODIUM CHLORIDE 0.9% 1,000 ML in EMPTY BAG 1 BAG IV ONE; +TRANEXAMIC ACID IN NACL,ISO-OS 1,000 MG in SALINE 1 100ML.BAG IVPB PRN
[2022-02-01] MEDS: LACTATED RINGERS 1,000 ML IV SCH ×2 (08:36→22:02)
[2022-02-01] MEDS ORDERED: NA PHOS,M-B/NA PHOS,DI-BA 133 ML ENEMA RECTAL PRN (08:52)
[2022-02-01] MEDS ORDERED: bisacodyL 10 MG SUPP RECTAL PRN (08:52)
[2022-02-01] MEDS ORDERED: MAGNESIUM HYDROXIDE 2,400 MG/10 ML CUP PO PRN (08:52)
[2022-02-01] MEDS ORDERED: HYDROmorphone 0.5 MG/0.5 ML SYRINGE IVP PRN ×3 (08:52)
[2022-02-01] MEDS ORDERED: NALOXONE 0.4 MG/ML 1 ML VIAL IV PRN (08:52)
[2022-02-01] MEDS ORDERED: ONDANSETRON 4 MG/2 ML VIAL IVP PRN (08:52)
[2022-02-01] MEDS ORDERED: HYDROcodone/APAP 7.5-325MG 1 EACH TAB PO PRN (08:54)
[2022-02-01] MEDS ORDERED: fentaNYL (PF) 50 MCG/ML 2 ML AMP IV ONE (08:54)
[2022-02-01] MEDS ORDERED: MIDAZOLAM 2 MG/2 ML VIAL IV ONE (08:54)
[2022-02-01] MEDS ORDERED: TRANEXAMIC ACID IN NACL,ISO-OS 1,000 MG/100 ML BAG ONE (09:10)
[2022-02-01] MEDS ORDERED: PHENYLEPHRINE-0.9% NACL SYG 1,000 MCG/10 ML SYRINGE ONE (09:10)
[2022-02-01] MEDS ORDERED: fentaNYL (PF) 50 MCG/ML 2 ML AMP ONE (09:10)
[2022-02-01] MEDS ORDERED: PROPOFOL 10 MG/ML 20 ML VIAL IV ONE (09:10)
[2022-02-01] MEDS ORDERED: SODIUM CHLORIDE 0.9% (PF) 10 ML VIAL ONE (09:10)
[2022-02-01] MEDS ORDERED: MIDAZOLAM 2 MG/2 ML VIAL ONE (09:10)
[2022-02-01] MEDS ORDERED: KETAMINE 10 MG/ML 20 ML VIAL ONE (09:10)
[2022-02-01] MEDS ORDERED: ROPIVACAINE 5 MG/ML 30 ML VIAL ONE (09:10)
[2022-02-01] MEDS ORDERED: diphenhydrAMINE 50 MG/ML 1 ML VIAL ONE (09:10)
[2022-02-01] MEDS ORDERED: ceFAZolin 1,000 MG in SODIUM CHLORIDE 0.9% 1,000 ML IRRIGATION ONE (09:15)
[2022-02-01] MEDS ORDERED: ROPIVACAINE 0.2%-NS ON-Q PUMP 1,090 MG, EMPTY PAIN BALL 1 EACH MISCELLANE PRN (10:02)
--- NOTE | 2022-02-01 10:03 | P.ANPRN ---
Procedure Note - Anesthesia - Nerve Block Performed Left Adductor Canal Time Out Performed: Yes (08:53) Date of Procedure: 02/01/22 Procedure Start Time: Procedure Stop Time: Location of Patient: PreOp Indication: Acute Post-Operative Pain, Requested by Surgeon (Dr Chinmay Waite) Sedation Type: Sedate with meaningful contact maintained Preparation: Sterile Prep, Sterile Dressing Position: Supine Catheter: Indwelling Needle Types: Pajunk Needle Gauge: 21 Ultrasound used to visualize needle placement: Yes Ultrasound used to observe medication spread: Yes Injectate: 0.5% Ropivacaine (see comment for volume) (15cc) Blood Aspirated: No Pain Paresthesia on Injection Noted: No Resistance on Injection: Normal Image Stored and Saved: Yes Events: Uneventful and Well Tolerated
--- NOTE | 2022-02-01 10:04 | P.ANPRN ---
Procedure Note - Anesthesia - Nerve Block Performed Left iPack Time Out Performed: Yes Date of Procedure: 02/01/22 Procedure Start Time: :03 Procedure Stop Time: :09 Location of Patient: PreOp Indication: Acute Post-Operative Pain, Requested by Surgeon (Dr Chinmay Waite) Sedation Type: Sedate with meaningful contact maintained Preparation: Sterile Prep Position: Supine Catheter: None Needle Types: Pajunk Needle Gauge: 21 Ultrasound used to visualize needle placement: Yes Ultrasound used to observe medication spread: Yes Injectate: 0.5% Ropivacaine (see comment for volume) (15cc + 5 cc PF Normal saline) Blood Aspirated: No Pain Paresthesia on Injection Noted: No Resistance on Injection: Normal Image Stored and Saved: Yes Events: Uneventful and Well Tolerated
--- NOTE | 2022-02-01 10:24 | P.OP ---
Date of Procedure: 02/01/22 Preoperative Diagnosis: Severe osteoarthritis left knee Postoperative Diagnosis: Severe osteoarthritis left knee Procedure(s) Performed: Left total knee arthroplasty Implants: Bland [employer] Nephew Journey II CR Oxinium cruciate retaining femoral component size 4, left Bland [employer]hew Journey nonporous tibial baseplate size 3, left Bland [employer] Journey II, XLPE Deep Dished articular insert, size 10 mm, Size 3-4, left [employer] Journey Megan II resurfacing patellar component, oval, 29 mm All components were cemented using Palacos R bone cement The articulation is Oxinium on polyethylene Anesthesia: spinal Surgeon: Chinmay Waite Traffic Assistant #1: Shanna Tomlin Estimated Blood Loss (ml): 30 Pathology: other (Bone and cartilage) Condition: stable Disposition: PACU Indications for Procedure: After failure of conservative treatment we discussed the surgical and nonsurgical treatment options at length. Patient wishes to proceed with a total knee arthroplasty. Complications specific to this procedure were discussed at length, including but not limited to infection, bleeding, stiffness, and nerve injury. Covid-19 was also discussed at length with the patient, and they are aware of the current policies and procedures. The patient was given the option of delaying surgery, but they elect to proceed knowing these risks. Patient is aware of all these complications and informed consent was obtained Operative Findings: The operative findings are consistent with severe osteoarthritis the left knee Description of Procedure: Patient was seen in the preoperative area and the consent was reviewed and the operative site was marked with a skin marker. The patient verified the procedure and the operative site. An adductor canal pain catheter and an iPACK block was placed by anesthesia in the preoperative area. The patient was then brought to the operating room and given preoperative antibiotics intravenously. A gram of transexamic acid was given intravenously. A spinal anesthetic was administered by the anesthesia department. A tourniquet was placed on the upper thigh and the lower extremity was prepped with chlorhexidine and draped in usual sterile fashion. A universal timeout was then performed which confirmed the patient's name, surgical site, ALLERGIES, and consent. The lower extremity was then exsanguinated and tourniquet was inflated to 250 mmHg. A standard anterior midline approach to the knee was performed. The skin and subcutaneous tissue were sharply dissected down to the patellar tendon. A medial parapatellar arthrotomy was then performed. The knee was then extended, the patellar was everted, and the knee was again flexed. The infra-patellar fat pad was removed in order to enhance exposure. The anterior horns of both menisci were excised, and a release was performed to the posterior medial aspect of the knee. On gross visual inspection, there was complete loss of articular cartilage in the medial and patellofemoral joint spaces. There was also significant cartilage damage in the lateral compartment. There were multiple periarticular osteophytes globally about the knee which were then removed with a Ronguer. The femoral canal was then opened with the 9.5 mm intramedullary drill. The 8 mm intramedullary miguel was then inserted into the femoral canal with the distal femoral cutting guide set for 5 of valgus. The distal femoral cutting block was then pinned in place. The intramedullary miguel was then removed, and the distal femur was then cut. The cutting block was then removed and the cut was checked for symmetry. The resected bone was then measured to confirm the appropriate distal femoral resection. Next, the sizing guide was then placed and set for 3 external rotation based off of the epicondylar axis and Whitesides line. Pins were then placed and the drill holes, and the femur was sized with the sizing stylus. The pins were then removed, and the sizing guide was then removed. The spikes of the femoral block was then placed into the predrilled holes, and malleted into place. Two 45 mm pins were then placed into the fixation holes on the cutting block. An digna wing was then used to ensure there would be no notching with the anterior cut. The anterior condyles were cut without notching. The anterior chord cut was then performed, followed by the posterior cut, posterior chamfer cut, and the anterior chamfer cut. The collateral ligaments were protected during the entire process. The cutting block was then removed. Any remaining bone and osteophytes were removed from the femur with a Ronguer. The femoral canal was plugged with autologous bone. Attention was then directed to the tibia. The remaining ACL was removed with a Ronguer, and the tibia was then gently subluxed forward with a large bent knee retractor. Any remaining menisci were excised. The posterior lateral corner was cauterized in order to coagulate the lateral geniculate artery. The extra medullary tibial cutting guide was then placed, set for the appropriate rotation, slope, and depth of resection. The proximal tibia cutting guide was then pinned in place. Proximal tibia was then cut and sized. The femoral trial was placed. A narrow saw blade was then used to remove the anterior intracondylar femoral bone. The CR notch trial was then placed. The tibial trial was placed with the appropriate-sized insert. The knee was able to fully extend and flex to 130 and was stable throughout all range of motion. The knee was then extended and the patella was everted. Patella was then measured, and then using an osteotomy guide, the patella was cut at the appropriate level. The patella was then measured and drilled and the patella trial was then placed. The knee was then taken through range of motion with the patella trial and the patella tracked normally using the no thumbs technique. The knee was then extended patella trial was then removed and the patella was everted. Knee was then flexed and lug holes were drilled through the femoral trial and the femoral trial was then removed. The tibial was then re-exposed, and the tibial broach guide was then pinned in place after it was set for the appropriate rotation to allow for the most coverage without overhang. The tibia was then reamed and broached. The cut surfaces of bone were then irrigated with pulsatile lavage. The knee was also irrigated with Irrisept solution. The components were then opened, the cement was mixed, and the components were then cemented in place. The cement was allowed to harden with the knee in full extension. After the cemented hardened, the tourniquet was released and hemostasis was obtained. A second gram of transexamic acid was given intravenously. The knee was again irrigated. The knee was again taken through range of motion and found to be stable throughout all range of motion of 0-130, and the patella tracked normally. The fascia was then closed with 0 Vicryl followed by #2 strata fix suture. The subcutaneous tissue was closed with 3-0 Vicryl and 3-0 strata fix. Exofin glue was used for the skin and placed with the knee in flexion. After the glue had dried, and Optafoam silver impregnated dressing was applied. The patient was then transferred to recovery room in stable condition. The news production assistant TIM Herrmann was required due the complexity surgery and the need for a skilled surgical instrument maker. She assisted in positioning, draping, retraction, and closure of the wound.
[2022-02-01] MEDS ORDERED: LACTATED RINGERS 1,000 ML IV ONE (10:38)
--- NOTE | 2022-02-01 12:33 | XR ---
EXAMINATION TYPE: XR knee limited LT DATE OF EXAM: 02/01/2022 12:28 PM INDICATION: Patient age:Female; 71 years old; Reason for study: Evaluation for Postop abnormality and alignment; [facility]. COMPARISON: None. TECHNIQUE: The Left knee(s) was examined in 2 projections. Frontal and lateral. FINDINGS: Postsurgical changes from total knee arthroplasty with distal femoral proximal tibial com ponents. Hardware is intact with appropriate alignment. No acute fracture or dislocation. Expected varela bcutaneous gas soft tissue edema. IMPRESSION: Postsurgical changes from total knee arthroplasty. Hardware is intact with the preliminary.
[2022-02-01] MEDS: HYDROmorphone 0.5 MG/0.5 ML SYRINGE IVP PRN ×2 (13:00→14:02)
[2022-02-01] MEDS: HYDROcodone/APAP 7.5-325MG 1 EACH TAB PO PRN ×2 (15:04→21:17)
[2022-02-01] MEDS ORDERED: PANTOPRAZOLE 40 MG TABLET PO PRN (16:40)
[2022-02-01] MEDS: SODIUM CHLORIDE 0.9% 1,000 ML IV SCH ×2 (17:49→22:02)
[2022-02-01] MEDS: SENNOSIDES-DOCUSATE SODIUM 1 EACH TAB PO SCH (20:01)
[2022-02-01] MEDS: traZODone HCL 50 MG TAB PO SCH (20:01)
[2022-02-01] MEDS: ATORVASTATIN 20 MG TAB PO SCH (20:01)
[2022-02-01] MEDS: ASPIRIN 325 MG TAB PO SCH (20:01)
[2022-02-01] MEDS: ALPRAZolam 0.25 MG TAB PO PRN (20:05)
[2022-02-01] MEDS ORDERED: ASPIRIN 325 MG TAB PO SCH (21:00)
[2022-02-02] MEDS: HYDROcodone/APAP 7.5-325MG 1 EACH TAB PO PRN ×3 (03:50→16:35)
[2022-02-02] MEDS: LEVOTHYROXINE 25 MCG TAB PO SCH (06:09)
[2022-02-02] MEDS: VALSARTAN 160 MG TAB PO SCH (09:47)
[2022-02-02] MEDS: ASPIRIN 325 MG TAB PO SCH ×2 (09:48→19:32)
[2022-02-02] MEDS: hydroCHLOROthiazide 25 MG TAB PO SCH (09:48)
[2022-02-02 10:36] LABS: Basophils # (A) 0.02 X 10*3/uL (0.00-0.10); Basophils % (A) 0.3 %; Eosinophils # (A) 0.01 X 10*3/uL (0.04-0.35); Eosinophils % (A) 0.1 %; HCT 36.5 % (37.2-46.3); HGB 11.5 g/dL (12.0-15.0); Immature Grans, Automated 0.4 %; Lymphocytes # (A) 1.14 X 10*3/uL (0.90-5.00); Lymphocytes % (A) 16.9 %; MCH 29.9 pg (27.0-32.0); MCHC 31.5 g/dL (32.0-37.0); MCV 95.1 fL (80.0-97.0); Mean Platelet Volume 10.3 fL (9.5-12.2); Monocytes # (A) 0.93 X 10*3/uL (0.20-1.00); Monocytes % (A) 13.8 %; NRBC Per 100 WBC 0 /100 WBCS (0.0-0.0); Neutrophils # (A) 4.63 X 10*3/uL (1.80-7.70); Neutrophils % (A) 68.5 %; Platelet Count 194 X 10*3/uL (140-440); RBC 3.84 X 10*6/uL (4.10-5.20); RDW 12.8 % (11.5-14.5); WBC 6.76 X 10*3/uL (4.50-10.00)
--- NOTE | 2022-02-02 11:05 | P.PN ---
Subjective Progress Note Date: 02/02/22 This is a 71-year-old female who is status post left total knee arthroplasty. This is postoperative day #1 and patient is seen and evaluated at bedside with Dr. Chinmay Waite. Patient states that she has been in a lot of pain and is having trouble working with physical therapy because of the pain. Objective - Vital Signs Vital signs: Vital Signs Temp 98.6 F 02/02/22 07:56 Pulse 65 02/02/22 07:56 Resp 17 02/02/22 07:56 BP 186/76 02/02/22 07:56 Pulse Ox 98 02/02/22 07:56 FiO2 Intake & Output 02/01/22 02/02/22 02/02/22 18:59 06:59 18:59 Intake Total 1651 Output Total 330 Balance 1321 Weight 98.2 kg Intake: IV 1651 Output: Urine 300 Estimated Blood Loss 30 Other: Voiding Method Bedside Commode Toilet # Voids 2 4 - Exam Vital signs are stable. Patient is in no acute distress and is alert and oriented 3. Calf is soft and nontender to palpation. Dressing is clean, dry, and intact. Patient has full foot and ankle motion without pain or difficulty. Sensation intact. Neurovascular status and circulatory status are intact. - Labs CBC & Chem 7: 02/02/22 07:08 Labs: Abnormal Lab Results - Last 24 Hours (Table) 02/02/22 Range/Units 07:08 RBC 3.84 L (4.10-5.20) X 10*6/uL Hgb 11.5 L (12.0-15.0) g/dL Hct 36.5 L (37.2-46.3) % MCHC 31.5 L (32.0-37.0) g/dL Eosinophils # 0.01 L (0.04-0.35) X 10*3/uL Assessment and Plan (1) Osteoarthritis of left knee Current Visit: Yes Status: Acute Code(s): M17.12 - UNILATERAL PRIMARY OSTEOARTHRITIS, LEFT KNEE SNOMED Code(s): 879506033326441 (2) S/P total knee arthroplasty Current Visit: Yes Status: Acute Code(s): Z96.659 - PRESENCE OF UNSPECIFIED ARTIFICIAL KNEE JOINT SNOMED Code(s): 4098216023244 Plan: #1 Continue with routine postoperative care and pain control, leave dressing in place for 7 days. #2 Anticoagulation with aspirin. #3 Physical therapy and CPM today. #4 Appreciate input from medicine. #5 Anticipate discharge home with home care likely tomorrow.
[2022-02-02] MEDS: SODIUM CHLORIDE 0.9% 1,000 ML IV SCH ×2 (17:11→19:41)
--- NOTE | 2022-02-02 18:02 | P.CONS ---
History of Present Illness - Reason for Consult Consult date: 02/01/22 - History of Present Illness Veronique Pimentel, is a 71-year-old female who was admitted to [facility] by , and underwent left total knee arthroplasty, medical consultation was requested for management while hospitalized. Patient has a known history of hypertension, hyperlipidemia, hypothyroidism, a nxiety disorder, glaucoma and recurrent bladder infections. On review of system patient is alert and oriented 3 in no apparent distress she is complaining of pain in the left lower extremity otherwise she denies any complaints there is no fever or chills no headache or dizziness no chest pain no shortness of breath no cough no nausea or vomiting no abdominal pain no diarrhea no blood in the stools no burning with urination no frequency or urgency and no hematuria Past Medical History Past Medical History: Eye Disorder, GERD/Reflux, Hyperlipidemia, Hypertension, Osteoarthritis (OA), Thyroid Disorder Additional Past Medical History / Comment(s): DIVERTICULOSIS, HIATAL HERNIA, BOWEL PERFORATION AFTER COLONOSCOPY, KIDNEY STONES,GLAUCOMA ZAHIRA EYES, SPINAL OSTEOPOROSIS, PT HAS ONLY BEEN TAKING HTN, CHOLESTROL AND THYROID PILLS WHEN NEEDED-NOT DAILY. JUST FINISHED ANTIBIOTICS FOR RECENT UTI- History of Any Multi-Drug Resistant Organisms: None Reported Past Surgical History: Bowel Resection, Breast Surgery, Hysterectomy, Joint Replacement, Orthopedic Surgery Additional Past Surgical History / Comment(s): colostomy/ later reversal, arthrscopy rt knee, exp lap with lysis of adhesions, ureteral stents with removal of stents, colovaginal fistula repair, right hip replaced, RT TKA, COLONOSCOPY, BILAT CATARACTS REMOVED WITH LENS IMPLANTS Past Anesthesia/Blood Transfusion Reactions: Postoperative Nausea & Vomiting (PONV) Smoking Status: Current every day smoker - Past Family History Brother(s) Family Medical History: Cancer Additional Family Medical History / Comment(s): colon cancer Medications and Allergies Home Medications Medication Instructions Recorded Confirmed Type ALPRAZolam [Xanax] 0.25 mg PO BID PRN 01/18/18 01/28/22 History HYDROcodone/APAP 10-325MG [[place] 1 tab PO QID PRN 12/29/18 01/28/22 History 10-325] Valsartan/Hydrochlorothiazide 1 tab PO DAILY 12/29/18 01/28/22 History [Valsartan-Hctz 160-25 mg Tab] Ergocalciferol [Vitamin D2 (1250 1,250 mcg PO FR 04/20/21 01/28/22 History Mcg = 09090 Iu)] Levothyroxine Sodium [Synthroid] 25 mcg PO DAILY 04/20/21 01/28/22 History Pantoprazole [Protonix] 40 mg PO DAILY PRN 04/20/21 01/28/22 History Rosuvastatin [Crestor] 10 mg PO HS 04/20/21 01/28/22 History traZODone HCL 150 mg PO HS 04/20/21 01/28/22 History Aspirin 325 mg PO BID 01/28/22 01/28/22 History Aspirin 325 mg PO BID #60 tab 02/01/22 Rx Sennosides [Senokot] 2 tab PO DAILY PRN #60 tablet 02/01/22 Rx Ketorolac [Toradol] 10 mg PO Q6HR #12 tab 02/02/22 Rx Allergies Allergy/AdvReac Type Severity Reaction Status Date / Time Sulfa (Sulfonamide Allergy Rash/Hives Verified 02/01/22 07:58 Antibiotics) hydrocodone AdvReac Nausea Verified 02/01/22 07:58 hydromorphone [From Dilaudid] AdvReac Nausea Verified 02/01/22 07:58 steroids Allergy Swelling Uncoded 02/01/22 07:58 in mouth , chest pain, rash Physical Exam Vitals: Vital Signs Temp Pulse Pulse Resp BP Pulse Ox 02/01/22 16:00 89 18 157/75 97 02/01/22 15:00 87 18 146/66 97 02/01/22 14:30 90 18 171/79 97 02/01/22 14:00 83 18 164/72 98 02/01/22 13:30 83 18 138/71 97 02/01/22 13:00 79 18 1554/60 98 02/01/22 12:30 80 17 149/67 97 02/01/22 12:15 78 17 155/70 80 L 02/01/22 12:00 81 16 155/67 98 02/01/22 11:45 82 16 168/77 97 02/01/22 11:30 80 16 160/73 97 02/01/22 11:15 79 17 176/80 99 02/01/22 11:00 81 16 170/84 99 02/01/22 10:45 97.1 F L 85 16 143/60 97 02/01/22 09:00 88 20 157/77 94 L 02/01/22 08:29 97.1 F L 94 20 169/77 94 L Intake and Output 02/01/22 02/01/22 02/01/22 06:59 14:59 22:59 Intake Total 1051 600 Output Total 30 Balance 1021 600 Intake: IV 1051 600 Output: Estimated Blood Loss 30 Other: Weight 98.2 kg In general patient is alert and oriented x 3 in no distress HEENT head normocephalic and atraumatic Neck is supple no JVD no goiter no lymphadenopathy no carotid bruit Chest examination is clear to auscultation no crackles no wheezing Cardiac exam reveals regular heart sounds S1 and S2 no gallops no murmurs Abdomen is soft nontender no organomegaly with normal bowel sounds Extremity exam reveals no edema no cyanosis or clubbing Neurological examination reveals no gross focal deficits Results CBC & Chem 7: 02/02/22 07:08 Assessment and Plan Plan: Status post left total knee arthroplasty today, DVT prophylaxis and pain management as per orthopedic protocol Underlying history of hypertension Underlying history of hyperlipidemia Underlying history of hypothyroidism Underlying history of osteoarthritis Underlying history of anxiety disorder Underlying history of gastroesophageal reflux disease At this time patient was seen and examined on the medical floor Home medications reviewed and reordered Will check labs in a.m. and follow closely during this admission
[2022-02-02] MEDS: SENNOSIDES-DOCUSATE SODIUM 1 EACH TAB PO SCH (19:32)
[2022-02-02] MEDS: traZODone HCL 50 MG TAB PO SCH (19:32)
[2022-02-02] MEDS: ATORVASTATIN 20 MG TAB PO SCH (19:32)
[2022-02-02] MEDS: LACTATED RINGERS 1,000 ML IV SCH (19:41)
[2022-02-02] MEDS ORDERED: LORazepam 1 MG/0.5 ML VIAL IV STA (20:41)
[2022-02-02] MEDS: KETOROLAC 15 MG/ML 1 ML VIAL IVP PRN (20:53)
[2022-02-03] MEDS: LEVOTHYROXINE 25 MCG TAB PO SCH (05:58)
[2022-02-03] MEDS: KETOROLAC 15 MG/ML 1 ML VIAL IVP PRN (06:08)
[2022-02-03] MEDS: ALPRAZolam 0.25 MG TAB PO PRN (06:09)
[2022-02-03 07:57] VITALS: BP 180/79; PULSE 78; RESP 16; TEMP 98.2
[2022-02-03 09:11] LABS: Basophils # (A) 0.01 X 10*3/uL (0.00-0.10); Basophils % (A) 0.1 %; Eosinophils # (A) 0.02 X 10*3/uL (0.04-0.35); Eosinophils % (A) 0.3 %; HCT 36.9 % (37.2-46.3); HGB 11.9 g/dL (12.0-15.0); Immature Grans, Automated 0.7 %; Lymphocytes # (A) 1.16 X 10*3/uL (0.90-5.00); Lymphocytes % (A) 15.8 %; MCH 29.7 pg (27.0-32.0); MCHC 32.2 g/dL (32.0-37.0); Mean Platelet Volume 10.4 fL (9.5-12.2); Monocytes # (A) 0.77 X 10*3/uL (0.20-1.00); Monocytes % (A) 10.5 %; NRBC Per 100 WBC 0 /100 WBCS (0.0-0.0); Neutrophils # (A) 5.31 X 10*3/uL (1.80-7.70); Neutrophils % (A) 72.6 %; Platelet Count 205 X 10*3/uL (140-440); RBC 4.01 X 10*6/uL (4.10-5.20); RDW 12.7 % (11.5-14.5); WBC 7.32 X 10*3/uL (4.50-10.00)
[2022-02-03] MEDS: VALSARTAN 160 MG TAB PO SCH (09:47)
[2022-02-03] MEDS: ASPIRIN 325 MG TAB PO SCH (09:48)
[2022-02-03] MEDS: hydroCHLOROthiazide 25 MG TAB PO SCH (09:48)
[2022-02-03 10:19] LABS: African American GFR (CKD) 111.7 (60.0-200.0); Albumin 3.6 g/dL (3.8-4.9); Albumin/Globulin Ratio 1.98 (1.60-3.17); Anion Gap 11.7 mmol/L (10.00-18.00); BUN/Creat Ratio 15.05 Ratio (12.00-20.00); Blood Urea Nitrogen 8.1 mg/dL (9.0-27.0); Calcium 8.9 mg/dL (8.7-10.3); Carbon Dioxide 28.3 mmol/L (20.0-27.5); Globulin 1.8 g/dL (1.6-3.3); Non-African American GFR(CKD) 96.3 (60.0-200.0); Potassium 3.4 mmol/L (3.5-5.5); Total Bilirubin 0.5 mg/dL (0.30-1.20); Total Protein 5.4 g/dL (6.2-8.2)
[2022-02-03] MEDS ORDERED: POTASSIUM CHLORIDE ER 10 MEQ TAB.ER.PRT PO STA (11:15)
--- NOTE | 2022-02-03 11:22 | P.DS ---
Providers Date of admission: 02/02/22 07:13 Expected date of discharge: 02/03/22 Attending physician: Chinmay Waite Consults: 02/01/22 08:52 Consult Physician Routine Consulting Provider: Anthony Aguilera Consult Reason/Comments: medical management Do you want consulting provider notified?: Yes Primary care physician: Anthony [facility] Course: This is a 71-year-old female who has been followed in our office by Dr. Waite for continued complaints of left knee pain due to left knee osteoarthritis. Treatment options were discussed, and patient elected to undergo a left total knee arthroplasty. Patient was seen pre-operatively by Dr. Aguilera and cleared for surgery. Patient underwent a left total knee arthroplasty on 02/01/[address] Waite. The procedure was performed without complication or sequelae. The patient is doing fairly well postoperatively. Vital signs and labs are stable on postoperative day #2. Patient was examined bedside today. Patient states she is doing well this morning and the pain in her left knee is well-controlled. Patient has passed physical therapy to return home today. She is ambulating with a walker with minimal assistance. Patient is tolerating her diet well. She is voiding without issues. Patient is comfortable being discharged home with home health care today. Patient denies chest pain, shortness of breath, nausea, vomiting, fevers, chills. On examination, the patient is sitting up in the bedside chair in no apparent distress. She is alert and orientated 3. On inspection of the left knee, there is a clean, dry, intact Optifoam dressing in place. There is no bleeding or drainage the dressing. Patient has good strength and ROM of the left ankle and toes. Motor and sensory function is intact of the left lower extremity. The dorsalis pedis pulse is easily palpable, the left lower extremity is warm and well perfused with brisk capillary refill. Calf is soft and non-tender to palpation. Patient is discharged home with home health care today in good condition, pending medical clearance. Patient will follow-up with Dr. Waite in the office in 2 weeks. Please see med rec for accurate list of discharge medication. Plan - Discharge Summary Discharge Rx Participant: Yes New Discharge Prescriptions: New Ketorolac [Toradol] 10 mg PO Q6HR #12 tab Aspirin 325 mg PO BID #60 tab Sennosides [Senokot] 2 tab PO DAILY PRN #60 tablet PRN Reason: Constipation No Action ALPRAZolam [Xanax] 0.25 mg PO BID PRN PRN Reason: Anxiety HYDROcodone/APAP 10-325MG [[place] 10-325] 1 tab PO QID PRN PRN Reason: Pain Valsartan/Hydrochlorothiazide [Valsartan-Hctz 160-25 mg Tab] 1 tab PO DAILY Ergocalciferol [Vitamin D2 (1250 Mcg = 88881 Iu)] 1,250 mcg PO FR Levothyroxine Sodium [Synthroid] 25 mcg PO DAILY traZODone HCL 150 mg PO HS Rosuvastatin [Crestor] 10 mg PO HS Pantoprazole [Protonix] 40 mg PO DAILY PRN PRN Reason: Heartburn Aspirin 325 mg PO BID Discharge Medication List ALPRAZolam [Xanax] 0.25 mg PO BID PRN 01/18/18 [History] HYDROcodone/APAP 10-325MG [[place] 10-325] 1 tab PO QID PRN 12/29/18 [History] Valsartan/Hydrochlorothiazide [Valsartan-Hctz 160-25 mg Tab] 1 tab PO DAILY 12/29/18 [History] Ergocalciferol [Vitamin D2 (1250 Mcg = 79600 Iu)] 1,250 mcg PO FR 04/20/21 [History] Levothyroxine Sodium [Synthroid] 25 mcg PO DAILY 04/20/21 [History] Pantoprazole [Protonix] 40 mg PO DAILY PRN 04/20/21 [History] Rosuvastatin [Crestor] 10 mg PO HS 04/20/21 [History] traZODone HCL 150 mg PO HS 04/20/21 [History] Aspirin 325 mg PO BID 01/28/22 [History] Aspirin 325 mg PO BID #60 tab 02/01/22 [Rx] Sennosides [Senokot] 2 tab PO DAILY PRN #60 tablet 02/01/22 [Rx] Ketorolac [Toradol] 10 mg PO Q6HR #12 tab 02/02/22 [Rx] Follow up Appointment(s)/Referral(s): [facility] [NON-STAFF] - As Needed (Continuous Passive Motion knee machine) [facility] [NON-STAFF] - As Needed Chinmay Waite DO [Doctor of Osteopathic Medicine] - 02/17/22 1:45 pm Patient Instructions/Handouts: *Surgery [facility] - (O&A) Arthroscopic Knee Post-Op Instructions Activity/Diet/Wound Care/Special Instructions: Weightbearing as tolerated with a walker. CPM 5-6h daily as tolerated. Leave dressing intact. Dressing may be removed by home care nurse or by patient in 7 days. Then change dressing twice daily until follow up. May shower with initial dressing intact and after removal. If dressing become saturated, please remove. Recommend use of compression stockings daily until follow up to help prevent swelling and blood clots. May remove at night before sleeping. Please take aspirin 325mg twice daily for 30 days to prevent blood clots. Please follow up with [facility] and call with any questions or concerns, .
[2022-02-03] MEDS: HYDROcodone/APAP 7.5-325MG 1 EACH TAB PO PRN (11:44)
--- NOTE | 2022-02-03 12:00 | P.PN ---
Subjective Progress Note Date: 02/03/22 Veronique Pimentel, is a 71-year-old female who was admitted to [facility] by , and underwent left total knee arthroplasty, medical consultation was requested for management while hospitalized. Patient has a known history of hypertension, hyperlipidemia, hypothyroidism, anxiety disorder, glaucoma and recurrent bladder infections. On review of system patient is alert and oriented 3 in no apparent distress she is complaining of pain in the left lower extremity otherwise she denies any complaints there is no fever or chills no headache or dizziness no chest pain no shortness of breath no cough no nausea or vomiting no abdominal pain no diarrhea no blood in the stools no burning with urination no frequency or urgency and no hematuria On 02/03/2022 patient is alert and oriented 3. Patient has been up ambulating. Patient denies any chest pain or shortness of breath. Patient denies nausea vomiting or diarrhea. Patient denies any urinary burning or frequency. Anticipate possible discharge home today per surgical services. Patient states she will not go to any kind rehab facility plans on having help in the home Objective - Vital Signs Vital signs: Vital Signs Temp 98.2 F 02/03/22 07:50 Pulse 78 02/03/22 07:50 Resp 16 02/03/22 07:50 BP 180/79 02/03/22 07:50 Pulse Ox 92 L 02/03/22 07:50 FiO2 Intake & Output 02/02/22 02/03/22 02/03/22 18:59 06:59 18:59 Intake Total 120 Balance 120 Intake: Oral 120 Other: Voiding Method Toilet Toilet # Voids 4 - Exam In general patient is alert and oriented x 3 in no distress HEENT head normocephalic and atraumatic Neck is supple no JVD no goiter no lymphadenopathy no carotid bruit Chest examination is clear to auscultation no crackles no wheezing Cardiac exam reveals regular heart sounds S1 and S2 no gallops no murmurs Abdomen is soft nontender no organomegaly with normal bowel sounds Extremity exam reveals no edema no cyanosis or clubbing Neurological examination reveals no gross focal deficits - Labs CBC & Chem 7: 02/03/22 05:23 02/03/22 05:23 Labs: Abnormal Lab Results - Last 24 Hours (Table) 09/14/22 09/14/22 Range/Units 05:23 05:23 RBC 4.01 L (4.10-5.20) X 10*6/uL Hgb 11.9 L (12.0-15.0) g/dL Hct 36.9 L (37.2-46.3) % Immature Gran # 0.05 H (0.00-0.04) X 10*3/uL Eosinophils # 0.02 L (0.04-0.35) X 10*3/uL Potassium 3.4 L (3.5-5.5) mmol/L Carbon Dioxide 28.3 H (20.0-27.5) mmol/L BUN 8.1 L (9.0-27.0) mg/dL Creatinine 0.5 L (0.6-1.5) mg/dL Glucose 154 H (70-110) mg/dL AST 9 L (13-35) U/L Total Protein 5.4 L (6.2-8.2) g/dL Albumin 3.6 L (3.8-4.9) g/dL Assessment and Plan Plan: Status post left total knee arthroplasty today, DVT prophylaxis and pain management as per orthopedic protocol Underlying history of hypertension Underlying history of hyperlipidemia Underlying history of hypothyroidism Underlying history of osteoarthritis Underlying history of anxiety disorder Underlying history of gastroesophageal reflux disease At this time patient was seen and examined on the medical floor Home medications reviewed and reordered Anticipate discharge home today 02/03/2022 per surgical services
[2022-02-05] MEDS ORDERED: ERGOCALCIFEROL 1,250 MCG (50,000 IU) CAPSULE PO SCH (09:00)
== END 2022-02-03 14:10 | disposition home health service (06) ==
LOC: OR 07:29 → 4SSUR 10:40 → OR 02-02 07:13
PROVIDERS: ADMIT Orthopaedic Surgery; ATTEND Orthopaedic Surgery
DX: M17.32 Unilateral post-traumatic osteoarthritis, left knee (principal); T14.90XS Injury, unspecified, sequela; W19.XXXS Unspecified fall, sequela; I10 Essential (primary) hypertension; E78.5 Hyperlipidemia, unspecified; E03.9 Hypothyroidism, unspecified; M10.9 Gout, unspecified; F41.9 Anxiety disorder, unspecified; M81.0 Age-related osteoporosis without current pathological fracture; H40.9 Unspecified glaucoma; F17.210 Nicotine dependence, cigarettes, uncomplicated; Z97.3 Presence of spectacles and contact lenses; Z96.641 Presence of right artificial hip joint; Z96.651 Presence of right artificial knee joint; Z83.3 Family history of diabetes mellitus; Z82.49 Family history of ischemic heart disease and other diseases of the circulatory system; Z87.440 Personal history of urinary (tract) infections; K21.9 Gastro-esophageal reflux disease without esophagitis; Z87.19 Personal history of other diseases of the digestive system; Z87.442 Personal history of urinary calculi; Z90.49 Acquired absence of other specified parts of digestive tract; Z90.710 Acquired absence of both cervix and uterus; Z98.42 Cataract extraction status, left eye; Z98.41 Cataract extraction status, right eye; Z96.1 Presence of intraocular lens; Z80.0 Family history of malignant neoplasm of digestive organs; Z79.890 Hormone replacement therapy; Z79.82 Long term (current) use of aspirin; Z79.899 Other long term (current) drug therapy; Z88.2 Allergy status to sulfonamides; Z88.8 Allergy status to other drugs, medicaments and biological substances; Z88.7 Allergy status to serum and vaccine; Z88.5 Allergy status to narcotic agent
CPT/HCPCS: 93005; 97116; 97161; 97166; 64999; 64448; 76942; 80053; 85025 ×2; 88300; 73560; 27447; G0378 ×2; C1713; C1776; J2250; J2060; J1200; J0690 ×3; J2405 ×2; J3010; J2795 ×2; J1885 ×2; J2370; J2704; J1170

== ENCOUNTER → 2022-02-12 | Outpatient (CLI) | payer MEDICARE, OTHER ==
--- NOTE | 2022-02-12 12:32 | US ---
EXAMINATION TYPE: US venous doppler duplex LE LT DATE OF EXAM: 02/12/2022 12:14 PM COMPARISON: US 2016 CLINICAL HISTORY: M79.662 PAIN IN LEFT LOWER LEG. Left leg pain and swelling following left knee repl acement 10 days ago SIDE PERFORMED: Left TECHNIQUE: The lower extremity deep venous system is examined utilizing real time linear array sonog ulises with graded compression, doppler sonography and color-flow sonography. VESSELS IMAGED: Common Femoral Vein Deep Femoral Vein Greater Saphenous Vein * Femoral Vein Popliteal Vein Small Saphenous Vein * Proximal Calf Veins (* superficial vessels) Grayscale, color doppler, spectral doppler imaging performed of the deep veins of the lower extremiti es. There is normal flow, compressibility, vascular waveforms. Limited visualization of distal femoral vein due to leg swelling. Subcutaneous edema identified. Left Leg: Appears negative for DVT IMPRESSION: 1. No ultrasound evidence for deep venous thrombosis of the left lower extremity. Limited visualizati on of the distal femoral vein secondary to #2. 2. Subcutaneous edema.
== END | disposition home or self-care (01) ==
LOC: RADUSWWP 11:51
PROVIDERS: ATTEND Internal Medicine
DX: R60.0 Localized edema (principal)

== ENCOUNTER → 2022-04-06 | Outpatient (CLI) | payer MEDICARE, OTHER ==
--- NOTE | 2022-04-06 09:52 | US ---
EXAMINATION TYPE: US venous doppler duplex LE LT DATE OF EXAM: 04/06/2022 9:39 AM COMPARISON: US 02/12/2022. CLINICAL HISTORY: I80.9 PHLEBITIS AND THROMBOPHLEBITIS. Left leg pain SIDE PERFORMED: Left TECHNIQUE: The lower extremity deep venous system is examined utilizing real time linear array sonog ulises with graded compression, doppler sonography and color-flow sonography. VESSELS IMAGED: Common Femoral Vein Deep Femoral Vein Greater Saphenous Vein * Femoral Vein Popliteal Vein Small Saphenous Vein * Proximal Calf Veins (* superficial vessels) Grayscale, color doppler, spectral doppler imaging performed of the deep veins of the lower extremiti es. There is normal flow, compressibility, vascular waveforms. Left Leg: Negative for DVT IMPRESSION: No ultrasound evidence for left lower extremity deep venous thrombosis.
== END | disposition home or self-care (01) ==
LOC: RADUSWWP 09:08
PROVIDERS: ATTEND Orthopaedic Surgery
DX: M79.605 Pain in left leg (principal); M25.552 Pain in left hip; E78.5 Hyperlipidemia, unspecified; I10 Essential (primary) hypertension; F17.210 Nicotine dependence, cigarettes, uncomplicated

== ENCOUNTER → 2022-06-21 | Outpatient (CLI) | payer MEDICARE, OTHER ==
--- NOTE | 2022-06-21 12:02 | XR ---
EXAMINATION TYPE: XR chest 2V DATE OF EXAM: 06/21/2022 11:58 AM COMPARISON: Chest radiographs from 03/23/2019 TECHNIQUE: XR chest 2V Frontal and lateral views of the chest. CLINICAL INDICATION:Female, 71 years old with history of R05.9 Cough; FINDINGS: Lungs/Pleura: There is flattening of the diaphragm with increased lucency of the lungs. No evidence o f pneumothorax, pleural effusion or focal consolidation. Chronic senescent parenchymal changes. Pulmonary vascularity: Unremarkable. Heart/mediastinum: Cardiomediastinal silhouette is unremarkable. Musculoskeletal: No acute osseous pathology. Bilateral shoulder arthropathy. IMPRESSION: 1. No acute cardiopulmonary disease/process. 2. COPD changes.
== END | disposition home or self-care (01) ==
LOC: RADXRMAIN 11:47
PROVIDERS: ATTEND Internal Medicine
DX: J44.9 Chronic obstructive pulmonary disease, unspecified (principal)
CPT/HCPCS: 71046

== ENCOUNTER → 2022-11-26 | Outpatient (CLI) | payer MEDICARE, OTHER ==
--- NOTE | 2022-11-29 08:31 | MM ---
Reason for Exam: Screening (asymptomatic). Last mammogram was performed 2 year(s) and 2 month(s) ago. Patient History: Menarche at age 14. First Full-Term at age 20. Left ovary removed at age 31. Right ovary removed at age 31. Hysterectomy at age 31. Postmenopausal. Patient has history of breast feeding. Estrogen for 1 year from age 31 until age 32. 1974, Benign Excisional Biopsy on the right side. Risk Values: Jocelyn 5 year model risk: 1.5%. NCI Lifetime model risk: 4.5%. Prior Study Comparison: 12/12/2017 Bilateral Diagnostic Mammogram, [facility]. 07/18/2018 Left Diagnostic Mammogram, [facility]. 10/03/2020 Bilateral Screening Mammogram, [facility]. Tissue Density: The breast tissue is heterogeneously dense. This may lower the sensitivity of mammography. Findings: Analyzed By CAD. There is no suspicious group of microcalcifications or new suspicious mass in either breast. Overall Assessment: Benign, BI-RAD 2 Management: Screening Mammogram of both breasts in 1 year. . Patient should continue monthly self-breast exams. A clinical breast exam by your physician is recommended on an annual basis. This exam should not preclude additional follow-up of suspicious palpable abnormalities. Note on Jocelyn scores and lifetime risk: 1. A Jocelyn score greater than 3% is considered moderate risk. If this is the case, consider specialist referral to assess eligibility for a risk reducing agent. 2. If overall lifetime risk for the development of breast cancer is 20% or higher, the patient may qualify for future screening with alternating mammogram and breast MRI. Electronically signed and approved by: Jamari Dobbs M.D. Radiologis
== END | disposition home or self-care (01) ==
LOC: RADMAMWWP 14:19
PROVIDERS: ATTEND Internal Medicine
DX: Z12.31 Encounter for screening mammogram for malignant neoplasm of breast (principal); Z78.0 Asymptomatic menopausal state
CPT/HCPCS: 77063; 77067

== ENCOUNTER 2023-12-02 13:50 | Emergency (ER) | payer MEDICARE, OTHER ==
[2023-12-02 14:02] VITALS: RESP 18; TEMP 98
--- NOTE | 2023-12-02 14:26 | ED ---
Fall HPI - General Chief Complaint: Fall Stated Complaint: Fall Time Seen by Provider: 12/02/23 14:10 Source: patient, EMS, RN notes reviewed Mode of arrival: EMS - History of Present Illness Initial Comments: This is a 9-year-old female with a history of osteoporosis who presents emergency department chief complaint of a fall. Patient states that she was in her kitchen mopping without shoes or socks on when she slipped and fell landing on the left side of her hip. Patient denies hitting her head or loss of consciousness at the time of fall. Patient is complaining of severe pain of her left remedy extending from her hip to her ankle. Patient has a history of total knee replacements bilaterally and a right total hip replacement. denies use of blood thinners. - Related Data Home Medications Medication Instructions Recorded Confirmed ALPRAZolam [Xanax] 0.25 mg PO BID PRN 01/18/18 01/28/22 HYDROcodone/APAP 10-325MG [[place] 1 tab PO QID PRN 12/29/18 01/28/22 10-325] Valsartan/Hydrochlorothiazide 1 tab PO DAILY 12/29/18 01/28/22 [Valsartan-Hctz 160-25 mg Tab] Ergocalciferol [Vitamin D2 (1250 1,250 mcg PO FR 04/20/21 01/28/22 Mcg = 16457 Iu)] Levothyroxine Sodium [Synthroid] 25 mcg PO DAILY 04/20/21 01/28/22 Pantoprazole [Protonix] 40 mg PO DAILY PRN 04/20/21 01/28/22 Rosuvastatin [Crestor] 10 mg PO HS 04/20/21 01/28/22 traZODone HCL 150 mg PO HS 04/20/21 01/28/22 Aspirin 325 mg PO BID 01/28/22 01/28/22 Previous Rx's Medication Instructions Recorded Aspirin 325 mg PO BID #60 tab 02/01/22 Sennosides [Senokot] 2 tab PO DAILY PRN #60 tablet 02/01/22 Ketorolac [Toradol] 10 mg PO Q6HR #12 tab 02/02/22 Allergies Allergy/AdvReac Type Severity Reaction Status Date / Time Sulfa (Sulfonamide Allergy Rash/Hives Verified 02/01/22 07:58 Antibiotics) hydrocodone AdvReac Nausea Verified 02/01/22 07:58 hydromorphone [From Dilaudid] AdvReac Nausea Verified 02/01/22 07:58 steroids Allergy Swelling Uncoded 02/01/22 07:58 in mouth , chest pain, rash Review of Systems ROS Statement: Those systems with pertinent positive or pertinent negative responses have been documented in the HPI. ROS Other: All systems not noted in ROS Statement are negative. Past Medical History Past Medical History: Eye Disorder, GERD/Reflux, Hyperlipidemia, Hypertension, Osteoarthritis (OA) Additional Past Medical History / Comment(s): DIVERTICULOSIS, HIATAL HERNIA, BOWEL PERFORATION AFTER COLONOSCOPY, KIDNEY STONES,GLAUCOMA ZAHIRA EYES, History of Any Multi-Drug Resistant Organisms: None Reported Past Surgical History: Joint Replacement, Orthopedic Surgery Additional Past Surgical History / Comment(s): colostomy/ later reversal, arthroscopy rt knee, exp lap with lysis of adhesions, uretal stents with removal of stents, colovaginal fistula repair, right hip replaced, bilateral knee replacements Past Anesthesia/Blood Transfusion Reactions: Postoperative Nausea & Vomiting (PONV) Past Psychological History: Anxiety, Depression Smoking Status: Former smoker, Vaper Past Alcohol Use History: None Reported Past Drug Use History: None Reported - Past Family History Brother(s) Family Medical History: Cancer Additional Family Medical History / Comment(s): colon cancer General Exam Limitations: no limitations General appearance: alert, in distress (pain) Head exam: Present: atraumatic, normocephalic, normal inspection Eye exam: Present: normal appearance, PERRL, EOMI. Absent: scleral icterus, conjunctival injection, periorbital swelling ENT exam: Present: normal exam, mucous membranes moist Neck exam: Present: normal inspection. Absent: tenderness, meningismus, lymphadenopathy Respiratory exam: Present: normal lung sounds bilaterally. Absent: respiratory distress, wheezes, rales, rhonchi, stridor Cardiovascular Exam: Present: regular rate, normal rhythm, normal heart sounds. Absent: systolic murmur, diastolic murmur, rubs, gallop, clicks GI/Abdominal exam: Present: soft, normal bowel sounds. Absent: distended, tenderness, guarding, rebound, rigid Left Hip exam: Present: tenderness. Absent: full ROM Upper Leg exam: Present: tenderness, swelling. Absent: full ROM Knee exam: Present: tenderness, swelling Lower Leg exam: Present: swelling Foot/Toe exam: Present: tenderness, swelling. Absent: full ROM Neurovascular tendon exam: Present: no vascular compromise Gait: unable to bear weight Back exam: Present: normal inspection Skin exam: Present: warm, dry, intact, normal color. Absent: rash Course Vital Signs 12/02/23 13:55 Temperature 98.0 F Pulse Rate 113 H Respiratory 18 Rate Blood Pressure 122/69 O2 Sat by Pulse 95 Oximetry Medical Decision Making - Medical Decision Making Was pt. sent in by a medical professional or institution (, PA, PULLING UNIT OPERATOR, urgent care, hospital, or fpc...) When possible be specific @ -No Did you speak to anyone other than the patient for history (EMS, parent, family, police, friend...)? What history was obtained from this source @ -No Did you review nursing and triage notes (agree or disagree)? Why? @ -I reviewed and agree with nursing and triage notes Were old charts reviewed (outside hosp., previous admission, EMS record, old EKG, old radiological studies, urgent care reports/EKG's, fpc records)? Report findings @ -No old charts were reviewed Differential Diagnosis (chest pain, altered mental status, abdominal pain women, abdominal pain men, vaginal bleeding, weakness, fever, dyspnea, syncope, headache, dizziness, GI bleed, back pain, seizure, CVA, palpatations, mental health, musculoskeletal)? @ -Differential Musculoskeletal Muscular strain, contusion, ligament sprain, fracture, arthritis, septic arthritis, bursitis, cellulitis, muscle spasm, nerve compression, DVT, arterial occlusion, herpes zoster, electrolyte abnormality, tumor.... This is not meant to be in all inclusive list EKG interpreted by me (3pts min.). @ -None X-rays interpreted by me (1pt min.). @ -XR left femur reveals an oblique fracture of the mid diaphysis with diastases angulation of the distal fracture fragment XR tibular fibular left no acute process XR left hip and AP pelvis no fracture pelvis,noted fracture of femur XR left ankle prominent soft tissue swelling over the distal ankle, no acute fractures evident. CT interpreted by me (1pt min.). @ -None done U/S interpreted by me (1pt. min.). @ -None done What testing was considered but not performed or refused? (CT, X-rays, U/S, labs)? Why? @ -None What meds were considered but not given or refused? Why? @ -None Did you discuss the management of the patient with other professionals (professionals i.e. , PA, PULLING UNIT OPERATOR, lab, RT, psych nurse, high school social science teacher, rack pusher, teacher, supply requirements officer, nurse outreach case manager)? Give summary @ -Spoke to [facility] midlevel provider, Yovanny, in regard to the midshaft femoral fracture. It was recommended that patient be transferred to [facility] for an orthopedic trauma and further evaluation. Was smoking cessation discussed for >3mins.? @ -No Was critical care preformed (if so, how long)? @ -No Were there social determinants of health that impacted care today? How? (Homelessness, low income, unemployed, alcoholism, drug addiction, transportation, low edu. Level, literacy, decrease access to med. care, [facility], rehab)? @ -No Was there de-escalation of care discussed even if they declined (Discuss DNR or withdrawal of care, Hospice)? DNR status @ -No What co-morbidities impacted this encounter? (DM, HTN, Smoking, COPD, CAD, Cancer, CVA, ARF, Chemo, Hep., AIDS, mental health diagnosis, sleep apnea, morbid obesity)? @ -None Was patient admitted / discharged? Hospital course, mention meds given and route , prescriptions, significant lab abnormalities, going to OR and other pertinent info. @ -Transferred. 72-year-old female with a fall. On examination patient noted to have pain of the left lower extremity and unable to complete range of motion due to pain. Patient is noted to have swelling of the left upper extremity. Palpable pedal pulses not palpated however with Doppler there is a pulse that is recorded. Patient will be evaluated via imaging and provided with pain medication. X-rays concerning for a left femur oblique fracture of the mid diaphysis. It is recommended that patient be transferred to [facility] for further evaluation for orthopedic trauma. ER attending Dr. Jenkins at [place] has accepted transfer. Case discussed with Dr. Mendez Undiagnosed new problem with uncertain prognosis? @ -No Drug Therapy requiring intensive monitoring for toxicity (Heparin, Nitro, Insulin, Cardizem)? @ -No Were any procedures done? @ -No Diagnosis/symptom? @ -Left midshaft femoral fracture, fall Acute, or Chronic, or Acute on Chronic? @ -Acute Uncomplicated (without systemic symptoms) or Complicated (systemic symptoms)? @ -uncomplicated Side effects of treatment? @ -No Exacerbation, Progression, or Severe Exacerbation? @ -No Poses a threat to life or bodily function? How? (Chest pain, [place], VA, pneumonia, PE, COPD, DKA, ARF, appy, cholecystitis, CVA, Diverticulitis, Homicidal, Suicidal, threat to staff... and all critical care pts) @ -No Disposition Clinical Impression: Femoral fracture Disposition: OTHER INSTITUTION NOT DEFINED Condition: Serious Referrals: Anthony Aguilera MD [Primary Care Provider] - 1-2 days - Out of Hospital Transfer - Req. Specs Out of Hospital Transfer - Requested Specifics: Other Emergency Center ([facility])
[2023-12-02] MEDS: MORPHINE SULFATE 4 MG/ML SYRINGE IVP STA ×2 (14:38→15:42)
--- NOTE | 2023-12-02 15:34 | XR ---
EXAMINATION TYPE: XR Hip LT and AP Pelvis DATE OF EXAM: 12/02/2023 COMPARISON: None HISTORY: Fall, injury TECHNIQUE: AP pelvis into the left. FINDINGS: There is a right femoral prosthesis. Symphysis pubis and sacroiliac joints are intact. No a cute fractures are evident. There is an oblique fracture the proximal diaphyseal femur. The left hip appears intact. Femoral head articulates with the acetabulum. IMPRESSION: 1. Proximal left femoral fracture 2. No acute osseous abnormalities AP pelvis
--- NOTE | 2023-12-02 15:35 | XR ---
EXAMINATION TYPE: XR femur LT DATE OF EXAM: 12/02/2023 COMPARISON: None HISTORY: Fall, pain TECHNIQUE: 2 view left femur FINDINGS: There is a long oblique fracture mid diaphysis left femur. There is diastases and angulatio n of fracture fragments. IMPRESSION: 1. Oblique fracture mid diaphysis left femur with diastases angulation of the distal fracture fragme nt
--- NOTE | 2023-12-02 15:37 | XR ---
EXAMINATION TYPE: XR tibia fibula LT DATE OF EXAM: 12/02/2023 COMPARISON: None HISTORY: Fall, pain TECHNIQUE: Tibia and fibula FINDINGS: Tibial and femoral knee prostheses components are evident. No acute fractures within the fi eld-of-view are evident. Distal ankle has limited evaluation. IMPRESSION: 1. No acute osseous abnormality visualized tibia and fibula
--- NOTE | 2023-12-02 15:38 | XR ---
EXAMINATION TYPE: XR ankle limited LT DATE OF EXAM: 12/02/2023 COMPARISON: None HISTORY: Fall, pain TECHNIQUE: 2 view left ankle FINDINGS: There is prominent soft tissue swelling over the ankle. Large plantar calcaneal heel spur i s present. Joint space is preserved. Ankle mortise is intact. IMPRESSION: 1. Prominent soft tissue swelling over the distal ankle. No acute fractures evident. Follow-up can b e performed as clinically indicated.
[2023-12-02 16:55] VITALS: BP 119/70; PULSE 88
--- NOTE | 2023-12-03 13:04 | XR ---
EXAMINATION TYPE: XR foot limited LT DATE OF EXAM: 12/02/2023 COMPARISON: 01/18/2018 HISTORY: Fall, injury TECHNIQUE: AP and lateral distal digits right foot FINDINGS: No acute fractures identified. There is loss of joint space first metatarsal phalangeal cheryl nt space. Prominent soft tissue swellings over the dorsum of foot. Hammertoes are present. Plantar ca lcaneal heel spur is present. Exam canbe performed 7-10 from acute trauma for continued pain IMPRESSION: 1. No acute osseous abnormality.
== END 2023-12-02 16:55 | disposition other institution (70) ==
LOC: EC 13:50
DX: S72.302A Unspecified fracture of shaft of left femur, initial encounter for closed fracture (principal); F17.290 Nicotine dependence, other tobacco product, uncomplicated; Z88.2 Allergy status to sulfonamides; Z88.6 Allergy status to analgesic agent; Z88.8 Allergy status to other drugs, medicaments and biological substances; Z88.1 Allergy status to other antibiotic agents; W01.0XXA Fall on same level from slipping, tripping and stumbling without subsequent striking against object, initial encounter
CPT/HCPCS: 73502; 73552; 73590; 73600; 73620; 99285; 96374; 96376; J2270